=== PATIENT | male | born 1945 | race Caucasian/White ===

== ENCOUNTER 2020-04-24 20:10 | Emergency (ER) | payer OTHER, MEDICARE, SELFPAY ==
[2020-04-24] VITALS (41 sets, daily range): BP systolic 158–224; BP diastolic 74–132; PULSE 125–175; RESP 12–37; TEMP 39.3–39.4; O2SAT 88–98
--- NOTE | 2020-04-24 20:22 | DI.RAD.S_ITS ---
PROCEDURE: XR CHEST 1V INDICATIONS: acutely altered mental status TECHNIQUE: One view of the chest was acquired. COMPARISON: None. FINDINGS: Surgical changes and devices: None. Lungs and pleura: Lungs are clear. No pleural effusions or pneumothorax. Mediastinum: Mediastinal contours appear normal. Heart size is normal. Bones and chest wall: No suspicious bony lesions. Overlying soft tissues appear unremarkable. IMPRESSION: No evidence acute pulmonary process. Dictated by: Vaibhav Louise M.D. on 04/24/2020 at 21:14 Approved by: Vaibhav Louise M.D. on 04/24/2020 at 21:15
--- NOTE | 2020-04-24 20:23 | DI.CT.S_ITS ---
PROCEDURE: CT HEAD/BRAIN WO CON INDICATIONS: altered mental status TECHNIQUE: Noncontrast 4.5 mm thick angled axial sections acquired from the foramen magnum to the vertex, with coronal and sagittal reformats. For radiation dose reduction, the following was used: automated exposure control, adjustment of mA and/or kV according to patient size. COMPARISON: None. FINDINGS: Image quality: Excellent. CSF spaces: Basal cisterns are patent. No extra-axial fluid collections. The ventricles are symmetric in size and shape. Brain: No intracranial bleeds or masses. There is cerebral volume loss for age, with resultant ventricular and sulcal prominence. There are periventricular and deep white matter chronic small vessel ischemic changes. There is intracranial internal carotid artery atherosclerosis. Skull and face: Calvarium and visualized facial bones appear intact, without suspicious lesions. Sinuses: Visualized sinuses and mastoids are clear. IMPRESSION: No evidence acute stroke, hemorrhage, or mass. Dictated by: Vaibhav Louise M.D. on 04/24/2020 at 20:45 Approved by: Vaibhav Louise M.D. on 04/24/2020 at 20:45
--- NOTE | 2020-04-24 20:23 | DI.CT.S_ITS ---
PROCEDURE: CT CERVICAL SPINE WO CON INDICATIONS: ? fall, altered mental status TECHNIQUE: Noncontrast 3 mm thick sections acquired from the skull base to the T4 level. Sagittal and coronal reformats were then constructed. For radiation dose reduction, the following was used: automated exposure control, adjustment of mA and/or kV according to patient size. COMPARISON: None. FINDINGS: Image quality: Excellent. Bones: No fractures or dislocations. Visualized superior ribs are intact. Moderate cervical spondylosis. Findings include multilevel right facet arthropathy and associated multilevel bony foraminal narrowing. Soft tissues: Prevertebral soft tissues are normal in thickness. No paravertebral hematomas. No apical pneumothoraces. IMPRESSION: 1. No evidence acute cervical fracture or dislocation. 2. Cervical spondylosis. Dictated by: Vaibhav Louise M.D. on 04/24/2020 at 20:45 Approved by: Vaibhav Louise M.D. on 04/24/2020 at 20:47
[2020-04-24] MEDS: ONDANSETRON 4 MG/2 ML INJ IV (20:29)
[2020-04-24] MEDS: SODIUM CHLORIDE 0.9% 1,000 ML 1000 ML IV (20:29)
[2020-04-24 20:36] LABS: Add Manual Diff / Slide Review NO; Basophils Absolute Auto 100 /uL (0-100); Basophils Percent Auto 0.4 % (0-2); Eosinophils Absolute Auto 0 /uL (0-450); Eosinophils Percent Auto 0.2 % (2-4); Hematocrit 46.6 % (41-53); Hemoglobin 15.5 g/dL (13.5-17.5); Lymphocytes Absolute Auto 1400 /uL (1100-4500); Mean Corpuscular HGB Conc 33.3 % (30-36); Mean Corpuscular Hemoglobin 30.8 PG (26-34); Mean Corpuscular Volume 92.5 fL (80-100); Monocytes Absolute Auto 500 /uL (0-900); Monocytes Percent Auto 3.6 % (3-14); Neutrophils Absolute Auto 11900 /uL (1500-7000); Neutrophils Percent Auto 85.8 % (50-75); Platelet Count 262 X10^3/uL (150-400); Red Blood Cell Count 5.04 X10^6/uL (4.5-5.9); Red Cell Distribution Width 12.9 % (11.6-14.8); White Blood Cell Count 13.9 X10^3/uL (4.5-11.0)
[2020-04-24 20:43] LABS: COVID19 -Nasal RAPID Negative (Negative)
[2020-04-24 20:44] LABS: INR 1.1 (0.9-1.3); Prothrombin Time 12.5 SECONDS (10.1-12.7)
[2020-04-24 20:49] LABS: Albumin 5.2 g/dL (3.5-5.0); Albumin Globulin Ratio 1.3 (1.0-2.8); Alkaline Phosphatase 104 U/L (38-126); Aspartate Aminotransferase 39 IU/L (17-59); BUN Creatinine Ratio 20.5 (6-22); Bilirubin Total 0.7 mg/dL (0.2-1.3); Blood Urea Nitrogen 24 mg/dL (9-20); Calcium 9.9 mg/dL (8.4-10.2); Carbon Dioxide 21 mmol/L (22-32); Chloride 95 mmol/L (98-107); Estimated Glomerular Filt Rate > 60.0 mL/min (>60); Glucose 325 mg/dL (80-110); HEMOLYSIS 37 (0-50); Lipase 144 U/L (23-300); Magnesium 1.3 mg/dL (1.6-2.3); Potassium 4.6 mmol/L (3.4-5.1); Sodium 137 mmol/L (137-145); Total Protein 9.2 g/dL (6.3-8.2)
[2020-04-24 20:55] LABS: Alanine Aminotransferase 35 IU/L (<50)
[2020-04-24 20:58] LABS: HCO3 VBG 26 mmol/L (23-28); Oxygen Saturation VBG 53 % (70-75); PCO2 VBG 42.9 mmHg (45-50); PO2 VBG 29 mmHg (35-45); Total CO2 VBG 27 mmol/L (24-29); pH VBG 7.39 (7.33-7.43)
[2020-04-24 20:59] LABS: Lactate (Lactic Acid) 7.4 mmol/L (0.7-2.1)
[2020-04-24 21:00] LABS: NT-proBNP (BNP-Adult 18+) 323 pg/mL (<125); Troponin I < 0.012 ng/mL (0.01-0.034)
--- NOTE | 2020-04-24 21:02 | ED.GENADULT ---
HPI - General Adult General Chief complaint: Trauma Stated complaint: Fall Time Seen by Provider: 04/24/20 20:21 Source: family Mode of arrival: Family Vehicle History of Present Illness HPI narrative: 75-year-old gentleman followed at the [facility] with a history of type 2 diabetes and hypertension presents with acutely altered mental status since 10:00 a.m. this morning. His noted that he was absolutely normal until 10:00 a.m. this morning when he stumbled going over a low door threshold and fell landing on his right shoulder. did not see the actual stumbled but did witness the fall and states he did not hit his head. He continued to have increasing weakness, altered mental status. Was able to take a nap woke up and had an episode of vomiting and diarrhea. She had difficulty in getting him into the car with having him follow directions. He stumbled in the parking lot getting out of the car and scraped his right hand but did not fall again. Speech is significantly slurred and difficult to completely understand, he is not oriented to person time or place. describes again, perfectly normal health until this morning at 10:00 a.m.. She states that they both have had a mild cough, no fevers. He had not been complaining of headache, abdominal pain, difficulty with urination and she had not noticed any increase in edema or complaints of orthopnea. Related Data Home Medications Medication Instructions Recorded Confirmed aspirin 81 mg PO DAILY 04/24/20 04/24/20 atorvastatin 10 mg PO BEDTIME 04/24/20 04/24/20 ferrous sulfate 325 mg PO DAILY 04/24/20 04/24/20 glipizide 10 mg PO BID 04/24/20 04/24/20 metformin 1,000 mg PO BID 04/24/20 04/24/20 omeprazole 20 mg PO DAILY 04/24/20 04/24/20 Allergies Allergy/AdvReac Type Severity Reaction Status Date / Time No Known Drug Allergies Allergy Verified 04/24/20 22:02 Review of Systems Review of Systems ROS Unobtainable: All systems reviewed & are unremarkable except as noted in HPI and below Patient History Medical History (Updated 04/25/20 @ 02:51 by Liza Powell MD) BPH (benign prostatic hyperplasia) Diabetes Hypertension Exam Narrative Exam Narrative: General: Acutely ill-appearing, confused, pale, not oriented to person time replace, not able to respond to direct questioning due to confusion HEENT: Moist mucous membranes, normal sclera with mid position reactive pupils, no facial asymmetries. Neck: No JVD, supple Respiratory: Lungs with minor scattered wheezing but no rales no rhonchi. Full and symmetrical air movement Cardiac: Tachycardic with Regular rate and rhythm, 3/6 systolic ejection murmur, no bruits Abdomen: Soft, nontender, no pain behaviors with palpation. Mildly distended with fullness to the right portion of the abdomen which may simply be positional. No pain behaviors with manipulation of flanks Skin: Pale, decreased perfusion peripherally. He has a minor abrasion on his right shoulder minor scratches over his right knuckles both from falls today. On thorough skin exam he does not have any evidence of cellulitis or significant skin breakdown including perineal area. Neurologic: Able to move all extremities, right arm with increased upper extremity tone is and flexion but is able to extend fully without pain behavior. He is not hyper-reflexic and does not have localizing neurologic symptoms at this time. Extremities: Minor abrasion to the right shoulder. Minor contusion to the right hip and right knee, No obvious deformities or injuries otherwise Psych: Altered, garbled nonsensical speech, difficulty understanding and following directions Initial Vital Signs Initial Vital Signs: Vital Signs Pulse Rate 136 H 04/24/20 20:15 Respiratory Rate 29 H 04/24/20 20:15 Blood Pressure 207/105 H 04/24/20 20:15 Pulse Oximetry 94 04/24/20 20:15 Procedures Lumbar Puncture Time Out Performed: Yes Patient Position: left lateral decubitus Skin Prep: Povidone-Iodine 1% Local Anesthetic: other anesthetic (ketamine sedation) Spinal Needle Gauge: 22G Interspace Used: L4-L5 Fluid Initially Obtained: bloody (light pink, slightly hazy, same color all 4 tubes.) Additional Comments: CSF pressure was minimal and took extended period of time to allow the fluid collected to dribble out. Opening pressure was not specifically measured Procedural Sedation Consent signed: No Time out performed: Yes Indication: other (lumbar puncture) ASA Class: II Mallampati Airway Classification: Class II Preparation: principal scientist applied, pulse oximeter, supplemental O2 applied and IV secured Ketamine: IV Ketamine dose (mg): 80 Intraservice time/total sedation time (min): 14 Patient Tolerated Procedure: Well Course Orders Ordered: ED Orders 04/24/20 20:12 COVID19 Stat 04/24/20 20:20 Complete Blood Count AUTO DIFF Stat Comprehensive Metabolic Panel Stat Ketones (Beta-Hydroxybutyrate) Stat Lactate (Lactic Acid) Stat Lipase Stat Magnesium Stat NT-proBNP (BNP-Adult 18+) Stat Procalcitonin Stat Prothrombin Time INR Stat Troponin I Stat 04/24/20 20:22 XR chest 1V Stat 04/24/20 20:23 CT cervical spine wo con Stat CT head/brain wo con Stat 04/24/20 20:42 Venous Blood Gas Stat 04/24/20 20:45 Blood Culture Stat D Dimer Stat Type and Screen Stat 04/24/20 21:00 Urinalysis and Microscopic Stat 04/24/20 21:09 CT abdomen pelvis w con Stat 04/24/20 22:57 CSF culture Stat Cell Count w Diff CSF Stat Cell Count w Diff CSF Stat Glucose CSF Stat HOLD TUBE CSF Stat Meningitis Panel (Film Array) Stat Total Protein CSF Stat 04/25/20 01:49 CT head/brain wo con Stat 04/25/20 02:46 Respiratory Panel (Film Array) Stat Hydromorphone HCl (Hydromorphone 0.5 Mg Inj) 0.5 mg IV Q15MIN PRN PRN Reason: Pain, Last Admin: 04/24/20 21:58 Dose: 0.5 mg Documented by: TRINY Nicardipine HCl 25 mg/ Sodium (Chloride) 250 mls @ 50 mls/hr IV TITRATE ADRIEN; Protocol INSULIN DRIP PREMIX (Myxredlin Drip Premix) 100 unit in 100 mls @ 6 mls/hr IV TITRATE ADRIEN; Protocol Last Admin: 04/24/20 23:32 Dose: 6 mls/hr, 6 mls/hr Documented by: FRANCIE Cosigned by: TRINY Discontinued Medications Acetaminophen (Acetaminophen 650 Mg Supp) 650 mg AR NOW ONE Stop: 04/24/20 21:44 Last Admin: 04/24/20 21:54 Dose: 650 mg Documented by: TRINY Dexamethasone (Dexamethasone 10 Mg/Ml Vial) 10 mg IV NOW ONE Stop: 04/25/20 00:00 Last Admin: 04/25/20 00:13 Dose: 10 mg Documented by: FRANCIE Hydromorphone HCl (Hydromorphone 1 Mg Inj) 1 mg IV NOW ONE Stop: 04/25/20 01:16 Last Admin: 04/25/20 01:19 Dose: 1 mg Documented by: Sodium Chloride (Normal Saline 0.9%) 1,000 mls @ 1,000 mls/hr IV BOLUS ONE Stop: 04/24/20 21:20 Last Infusion: 04/24/20 23:33 Dose: 0 mls/hr Documented by: Admin: 04/24/20 20:29 Dose: 1,000 mls/hr Documented by: AARON Sodium Chloride (Normal Saline 0.9%) 2,476.62 mls @ 825.54 mls/hr 30 ml/kg infuse over 3 hr (2476.62 ml) IV NOW ONE Stop: 04/25/20 00:14 Last Admin: 04/24/20 21:54 Dose: 825.54 mls/hr Documented by: TRINY Piperacillin Sod/Tazobactam (Sod 4.5 gm/ Sodium Chloride) 100 mls @ 200 mls/hr IV NOW ONE Stop: 04/24/20 21:45 Last Infusion: 04/24/20 22:21 Dose: 0 mls/hr Documented by: Admin: 04/24/20 21:31 Dose: 200 mls/hr Documented by: FRANCIE Vancomycin HCl/Dextrose (Vancomycin) 1,500 mg in 300 mls @ 200 mls/hr IV NOW ONE Stop: 04/25/20 01:28 Last Titration: 04/25/20 03:05 Dose: Infused Documented by: Ceftriaxone Sodium/Dextrose (Rocephin) 2 gm in 50 mls @ 100 mls/hr IV NOW ONE Stop: 04/25/20 00:28 Last Admin: 04/25/20 00:16 Dose: 100 mls/hr Documented by: FRANCIE Ketamine HCl (Ketamine 500 Mg/5 Ml Inj) 85 mg 1 mg/kg (85 mg) IV NOW ONE Stop: 04/24/20 22:23 Last Admin: 04/24/20 22:45 Dose: 85 mg Documented by: FRANCIE Ketamine HCl (Ketamine 500 Mg/5 Ml Inj) 30 mg IV NOW ONE Stop: 04/24/20 23:50 Last Admin: 04/24/20 22:55 Dose: 30 mg Documented by: FRANCIE Ketorolac Tromethamine (Ketorolac 60 Mg/2 Ml Vial) 15 mg IV NOW ONE Stop: 04/25/20 01:15 Last Admin: 04/25/20 01:19 Dose: 15 mg Documented by: Lorazepam (Lorazepam 2 Mg/Ml Inj) 1 mg IV NOW ONE Stop: 04/24/20 23:04 Last Admin: 04/24/20 23:06 Dose: 1 mg Documented by: FRANCIE Lorazepam (Lorazepam 2 Mg/Ml Inj) 1 mg IV NOW ONE Stop: 04/24/20 23:49 Last Admin: 04/24/20 23:59 Dose: 1 mg Documented by: FRANCIE Lorazepam (Lorazepam 2 Mg/Ml Inj) 1 mg IV NOW ONE Stop: 04/25/20 00:17 Lorazepam (Lorazepam 2 Mg/Ml Inj) 1 mg IV NOW ONE Stop: 04/25/20 00:37 Olanzapine (Olanzapine Odt 10 Mg Tab) 10 mg PO NOW ONE Stop: 04/25/20 01:26 Last Admin: 04/25/20 01:35 Dose: 10 mg Documented by: Ondansetron HCl (Ondansetron 4 Mg/2 Ml Inj) 4 mg IV NOW ONE Stop: 04/24/20 20:22 Last Admin: 04/24/20 20:29 Dose: 4 mg Documented by: AARON Vital Signs Vital signs: Vital Signs - 8 hr 04/24/20 20:15 04/24/20 20:21 04/24/20 20:30 Temperature Pulse Rate 136 H 133 H 135 H Respiratory Rate 29 H 27 H 28 H Blood Pressure 207/105 H Blood Pressure [Right Arm] Pulse Oximetry 94 95 04/24/20 20:41 04/24/20 21:00 04/24/20 21:22 Temperature Pulse Rate 134 H 144 H 132 H Respiratory Rate 23 26 H 25 H Blood Pressure 210/105 H 212/103 H 223/104 H Blood Pressure [Right Arm] Pulse Oximetry 95 95 94 04/24/20 21:30 04/24/20 21:34 04/24/20 21:39 Temperature 103 F H Pulse Rate 137 H 133 H Respiratory Rate 34 H 25 H Blood Pressure 221/105 H 224/107 H Blood Pressure [Right Arm] Pulse Oximetry 93 93 04/24/20 21:58 04/24/20 22:00 04/24/20 22:05 Temperature Pulse Rate 133 H 133 H 128 H Respiratory Rate 27 H 24 22 Blood Pressure 211/95 H 219/100 H Blood Pressure [Right Arm] Pulse Oximetry 96 95 92 04/24/20 22:10 04/24/20 22:15 04/24/20 22:20 Temperature Pulse Rate 127 H 127 H 126 H Respiratory Rate 19 20 19 Blood Pressure Blood Pressure [Right Arm] Pulse Oximetry 92 92 93 04/24/20 22:25 04/24/20 22:30 04/24/20 22:31 Temperature Pulse Rate 131 H 127 H 127 H Respiratory Rate 18 21 20 Blood Pressure 171/81 H Blood Pressure [Right Arm] Pulse Oximetry 94 95 95 04/24/20 22:35 04/24/20 22:40 04/24/20 22:44 Temperature Pulse Rate 126 H 125 H 163 H Respiratory Rate 12 18 20 Blood Pressure Blood Pressure [Right Arm] Pulse Oximetry 95 97 04/24/20 22:45 04/24/20 22:46 04/24/20 22:50 Temperature Pulse Rate 133 H 140 H 149 H Respiratory Rate 21 24 27 H Blood Pressure 178/85 H 200/95 H Blood Pressure [Right Arm] 178/84 H Pulse Oximetry 91 94 88 L 04/24/20 22:55 04/24/20 22:59 04/24/20 23:00 Temperature Pulse Rate 174 H 161 H 158 H Respiratory Rate 34 H 31 H 25 H Blood Pressure 197/101 H 207/132 H Blood Pressure [Right Arm] Pulse Oximetry 89 L 97 04/24/20 23:05 04/24/20 23:06 04/24/20 23:10 Temperature Pulse Rate 175 H 172 H 160 H Respiratory Rate 36 H 37 H 37 H Blood Pressure 188/118 H Blood Pressure [Right Arm] Pulse Oximetry 91 92 94 04/24/20 23:13 04/24/20 23:15 04/24/20 23:20 Temperature Pulse Rate 150 H 134 H Respiratory Rate 25 H 21 Blood Pressure 187/82 H 174/79 H 163/74 H Blood Pressure [Right Arm] Pulse Oximetry 97 94 04/24/20 23:25 04/24/20 23:30 04/24/20 23:34 Temperature 102.7 F H Pulse Rate 129 H 128 H Respiratory Rate 25 H 23 Blood Pressure 166/77 H 158/75 H Blood Pressure [Right Arm] Pulse Oximetry 98 96 04/24/20 23:35 04/24/20 23:40 04/24/20 23:45 Temperature Pulse Rate 129 H 130 H 129 H Respiratory Rate 24 22 23 Blood Pressure 168/80 H 163/77 H 159/77 H Blood Pressure [Right Arm] Pulse Oximetry 97 98 95 04/24/20 23:50 04/24/20 23:55 04/25/20 00:00 Temperature Pulse Rate 129 H 130 H 132 H Respiratory Rate 24 26 H 22 Blood Pressure 160/82 H 158/80 H 164/81 H Blood Pressure [Right Arm] Pulse Oximetry 96 96 95 04/25/20 00:05 04/25/20 00:10 04/25/20 00:15 Temperature Pulse Rate 133 H 133 H 137 H Respiratory Rate 25 H 23 27 H Blood Pressure 166/82 H 172/82 H 165/77 H Blood Pressure [Right Arm] Pulse Oximetry 97 99 97 04/25/20 00:20 04/25/20 00:25 04/25/20 00:30 Temperature Pulse Rate 141 H 141 H 142 H Respiratory Rate 27 H 30 H 26 H Blood Pressure 173/79 H 166/76 H 176/72 H Blood Pressure [Right Arm] Pulse Oximetry 97 96 97 04/25/20 00:35 04/25/20 00:40 04/25/20 00:45 Temperature Pulse Rate 143 H 144 H 138 H Respiratory Rate 29 H 27 H 26 H Blood Pressure Blood Pressure [Right Arm] Pulse Oximetry 96 97 96 04/25/20 00:50 04/25/20 00:55 04/25/20 01:00 Temperature Pulse Rate 136 H 133 H 133 H Respiratory Rate 26 H 23 24 Blood Pressure 152/70 H Blood Pressure [Right Arm] Pulse Oximetry 95 97 97 04/25/20 01:05 04/25/20 01:10 04/25/20 01:15 Temperature Pulse Rate 132 H 132 H 131 H Respiratory Rate 23 25 H 22 Blood Pressure Blood Pressure [Right Arm] Pulse Oximetry 96 96 94 04/25/20 01:20 04/25/20 01:25 04/25/20 01:30 Temperature Pulse Rate 130 H 126 H 125 H Respiratory Rate 23 21 19 Blood Pressure 144/72 H Blood Pressure [Right Arm] Pulse Oximetry 96 94 97 04/25/20 01:35 04/25/20 01:40 04/25/20 01:45 Temperature Pulse Rate 126 H 125 H 127 H Respiratory Rate 21 18 19 Blood Pressure Blood Pressure [Right Arm] Pulse Oximetry 89 L 96 94 04/25/20 01:50 04/25/20 01:55 04/25/20 02:00 Temperature Pulse Rate 128 H 128 H 129 H Respiratory Rate 20 21 19 Blood Pressure Blood Pressure [Right Arm] Pulse Oximetry 92 94 94 04/25/20 02:05 04/25/20 02:10 04/25/20 02:12 Temperature Pulse Rate 126 H 125 H 125 H Respiratory Rate 18 19 18 Blood Pressure 109/59 L Blood Pressure [Right Arm] Pulse Oximetry 93 95 97 04/25/20 02:15 04/25/20 02:20 04/25/20 02:25 Temperature Pulse Rate 124 H 122 H 121 H Respiratory Rate 17 16 16 Blood Pressure Blood Pressure [Right Arm] Pulse Oximetry 95 94 93 04/25/20 02:30 04/25/20 02:31 04/25/20 02:35 Temperature Pulse Rate 120 H 119 H 118 H Respiratory Rate 15 16 16 Blood Pressure 88/51 L 101/54 L Blood Pressure [Right Arm] Pulse Oximetry 94 94 93 04/25/20 02:40 04/25/20 02:45 04/25/20 02:46 Temperature Pulse Rate 117 H 117 H 117 H Respiratory Rate 16 16 15 Blood Pressure 104/54 L Blood Pressure [Right Arm] Pulse Oximetry 93 93 93 04/25/20 02:50 04/25/20 02:55 04/25/20 03:00 Temperature Pulse Rate 120 H 118 H 119 H Respiratory Rate 18 16 15 Blood Pressure 114/60 Blood Pressure [Right Arm] Pulse Oximetry 94 95 94 04/25/20 03:05 04/25/20 03:10 04/25/20 03:15 Temperature Pulse Rate 119 H 120 H 120 H Respiratory Rate 15 16 14 Blood Pressure 113/58 L Blood Pressure [Right Arm] Pulse Oximetry 94 94 94 04/25/20 03:20 Temperature Pulse Rate 121 H Respiratory Rate 16 Blood Pressure Blood Pressure [Right Arm] Pulse Oximetry 94 Medical Decision Making Medical Records Medical records reviewed: Yes I reviewed the patient's medical records. Lab Data Lab results reviewed: Yes I reviewed the patient's lab results. Lab results narrative: Anion gap 21 D-dimer corrects for age 23:00 CSF has 4250 WBC, 13 red blood cells glucose is 147 with serum glucose at 290, CSF total protein is 93. No organisms with occasional white blood cell seen on Gram stain, 02:00 Lab error in reporting CSF results is identified and clarified. Tube #1: 13 WBC, 4900 RBC. Tube #2: 13 WBC, 4250 RBC. Result diagrams: 04/24/20 20:20 04/24/20 20:20 Labs: Lab Results 04/24/20 04/24/20 04/24/20 Range/Units 20:12 20:20 20:20 WBC 13.9 H (4.5-11.0) X10^3/uL RBC 5.04 (4.5-5.9) X10^6/uL Hgb 15.5 (13.5-17.5) g/dL Hct 46.6 (41-53) % MCV 92.5 (80-100) fL MCH 30.8 (26-34) PG MCHC 33.3 (30-36) % RDW 12.9 (11.6-14.8) % Plt Count 262 (150-400) X10^3/uL Neut % (Auto) 85.8 H (50-75) % Lymph % (Auto) 10.0 L (25-40) % [place] % (Auto) 3.6 (3-14) % Eos % (Auto) 0.2 L (2-4) % Baso % (Auto) 0.4 (0-2) % Neut # (Auto) 06219 H (0010-7470) /uL Lymph # (Auto) 1400 (7750-0736) /uL [place] # (Auto) 500 (0-900) /uL Eos # (Auto) 0 (0-450) /uL Baso # (Auto) 100 (0-100) /uL PT 12.5 (10.1-12.7) SECONDS INR 1.1 (0.9-1.3) D-Dimer (<230) ng/mL VBG pH (7.33-7.43) VBG pCO2 (45-50) mmHg VBG pO2 (35-45) mmHg VBG HCO3 (23-28) mmol/L VBG Total CO2 (24-29) mmol/L VBG O2 Saturation (70-75) % VBG Base Excess (0-4) mmol/L Sodium (137-145) mmol/L Potassium (3.4-5.1) mmol/L Chloride (98-107) mmol/L Carbon Dioxide (22-32) mmol/L BUN (9-20) mg/dL Creatinine (0.66-1.25) mg/dL Estimated GFR (>60) mL/min BUN/Creatinine Ratio (6-22) Glucose (80-110) mg/dL Lactate (0.7-2.1) mmol/L Calcium (8.4-10.2) mg/dL Magnesium (1.6-2.3) mg/dL Total Bilirubin (0.2-1.3) mg/dL AST (17-59) IU/L ALT (<50) IU/L Alkaline Phosphatase (38-126) U/L Troponin I (0.01-0.034) ng/mL NT-Pro-B Natriuret Pep (<125) pg/mL Total Protein (6.3-8.2) g/dL Albumin (3.5-5.0) g/dL Globulin (1.7-4.1) g/dL Albumin/Globulin Ratio (1.0-2.8) Lipase (23-300) U/L Procalcitonin (<0.5) ng/mL Urine Color Urine Appearance Urine pH (4.5-8.0) Ur Specific [place] (1.000-1.035) Urine Protein (Negative) Urine Glucose (UA) (Negative) g/dL Urine Ketones (NEGATIVE) Urine Occult Blood (Negative) Urine Nitrate (Negative) Urine Bilirubin (NEGATIVE) Urine Urobilinogen (0.2) E.U./dL Ur Leukocyte Esterase (NEGATIVE) Urine RBC (0-5/HPF) Urine WBC (0-5/HPF) Urine Bacteria (None) Hyaline Casts (None) Ur Culture Indicated? CSF Tube Number CSF Volume CSF Appearance (Clear) CSF Color (Colorless) CSF WBC (0-5) MONO/uL CSF RBC RBC /uL CSF Mononuclear WBCs % CSF Polynuclear WBCs % CSF Glucose (40-70) mg/dL CSF Total Protein (12-60) mg/dL CSF C.neoform/gat PCR (Not Detect) CSF CMV DNA (PCR) (Not Detect) CSF Enterovirus (PCR) (Not Detect) CSF E. coli (PCR) (Not Detect) CSF H. influenzae (PCR) (Not Detect) CSF HSV I (PCR) (Not Detect) CSF HSV II (PCR) (Not Detect) CSF HHV 6 (PCR) (Not Detect) CSF L.monocytogenes PCR (Not Detect) CSF N. meningitidis PCR (Not Detect) CSF Parechovirus (PCR) (Not Detect) CSF S. agalactiae (PCR) (Not Detect) CSF S. pneumoniae (PCR) (Not Detect) CSF VZV (PCR) (Not Detecte) Ketones (<0.27) mmol/L Chlamy pneumoniae PCR (Not Detect) Adenovirus (PCR) (Not Detect) B.parapertussis DNA PCR (Not Detect) Coronavirus OC43 (PCR) (Not Detect) Coronavirus HKU1 (PCR) (Not Detect) Coronavirus 229E (PCR) (Not Detect) SARS-CoV-2 (PCR) Negative (Negative) Coronavirus NL63 (PCR) (Not Detect) Human Metapneumovir PCR (Not Detect) Influenza Type A (PCR) (Not Detect) Influenza Type B (PCR) (Not Detect) M. pneumoniae (PCR) (Not Detect) Parainfluenza 1 (PCR) (Not Detect) Parainfluenza 2 (PCR) (Not Detect) Parainfluenza 3 (PCR) (Not Detect) Parainfluenza 4 (PCR) (Not Detect) RSV (PCR) (Not Detect) Entero/Rhino (PCR) (Not Detect) Blood Type Antibody Screen 04/24/20 04/24/20 04/24/20 Range/Units 20:20 20:20 20:20 WBC (4.5-11.0) X10^3/uL RBC (4.5-5.9) X10^6/uL Hgb (13.5-17.5) g/dL Hct (41-53) % MCV (80-100) fL MCH (26-34) PG MCHC (30-36) % RDW (11.6-14.8) % Plt Count (150-400) X10^3/uL Neut % (Auto) (50-75) % Lymph % (Auto) (25-40) % [place] % (Auto) (3-14) % Eos % (Auto) (2-4) % Baso % (Auto) (0-2) % Neut # (Auto) (4694-9331) /uL Lymph # (Auto) (4519-2144) /uL [place] # (Auto) (0-900) /uL Eos # (Auto) (0-450) /uL Baso # (Auto) (0-100) /uL PT (10.1-12.7) SECONDS INR (0.9-1.3) D-Dimer (<230) ng/mL VBG pH (7.33-7.43) VBG pCO2 (45-50) mmHg VBG pO2 (35-45) mmHg VBG HCO3 (23-28) mmol/L VBG Total CO2 (24-29) mmol/L VBG O2 Saturation (70-75) % VBG Base Excess (0-4) mmol/L Sodium 137 (137-145) mmol/L Potassium 4.6 (3.4-5.1) mmol/L Chloride 95 L (98-107) mmol/L Carbon Dioxide 21 L (22-32) mmol/L BUN 24 H (9-20) mg/dL Creatinine 1.17 (0.66-1.25) mg/dL Estimated GFR > 60.0 (>60) mL/min BUN/Creatinine Ratio 20.5 (6-22) Glucose 325 H (80-110) mg/dL Lactate 7.4 H* (0.7-2.1) mmol/L Calcium 9.9 (8.4-10.2) mg/dL Magnesium 1.3 L (1.6-2.3) mg/dL Total Bilirubin 0.7 (0.2-1.3) mg/dL AST 39 (17-59) IU/L ALT 35 (<50) IU/L Alkaline Phosphatase 104 (38-126) U/L Troponin I < 0.012 (0.01-0.034) ng/mL NT-Pro-B Natriuret Pep 323 H (<125) pg/mL Total Protein 9.2 H (6.3-8.2) g/dL Albumin 5.2 H (3.5-5.0) g/dL Globulin 4.0 (1.7-4.1) g/dL Albumin/Globulin Ratio 1.3 (1.0-2.8) Lipase 144 (23-300) U/L Procalcitonin < 0.05 (<0.5) ng/mL Urine Color Urine Appearance Urine pH (4.5-8.0) Ur Specific [place] (1.000-1.035) Urine Protein (Negative) Urine Glucose (UA) (Negative) g/dL Urine Ketones (NEGATIVE) Urine Occult Blood (Negative) Urine Nitrate (Negative) Urine Bilirubin (NEGATIVE) Urine Urobilinogen (0.2) E.U./dL Ur Leukocyte Esterase (NEGATIVE) Urine RBC (0-5/HPF) Urine WBC (0-5/HPF) Urine Bacteria (None) Hyaline Casts (None) Ur Culture Indicated? CSF Tube Number CSF Volume CSF Appearance (Clear) CSF Color (Colorless) CSF WBC (0-5) MONO/uL CSF RBC RBC /uL CSF Mononuclear WBCs % CSF Polynuclear WBCs % CSF Glucose (40-70) mg/dL CSF Total Protein (12-60) mg/dL CSF C.neoform/gat PCR (Not Detect) CSF CMV DNA (PCR) (Not Detect) CSF Enterovirus (PCR) (Not Detect) CSF E. coli (PCR) (Not Detect) CSF H. influenzae (PCR) (Not Detect) CSF HSV I (PCR) (Not Detect) CSF HSV II (PCR) (Not Detect) CSF HHV 6 (PCR) (Not Detect) CSF L.monocytogenes PCR (Not Detect) CSF N. meningitidis PCR (Not Detect) CSF Parechovirus (PCR) (Not Detect) CSF S. agalactiae (PCR) (Not Detect) CSF S. pneumoniae (PCR) (Not Detect) CSF VZV (PCR) (Not Detecte) Ketones (<0.27) mmol/L Chlamy pneumoniae PCR (Not Detect) Adenovirus (PCR) (Not Detect) B.parapertussis DNA PCR (Not Detect) Coronavirus OC43 (PCR) (Not Detect) Coronavirus HKU1 (PCR) (Not Detect) Coronavirus 229E (PCR) (Not Detect) SARS-CoV-2 (PCR) (Negative) Coronavirus NL63 (PCR) (Not Detect) Human Metapneumovir PCR (Not Detect) Influenza Type A (PCR) (Not Detect) Influenza Type B (PCR) (Not Detect) M. pneumoniae (PCR) (Not Detect) Parainfluenza 1 (PCR) (Not Detect) Parainfluenza 2 (PCR) (Not Detect) Parainfluenza 3 (PCR) (Not Detect) Parainfluenza 4 (PCR) (Not Detect) RSV (PCR) (Not Detect) Entero/Rhino (PCR) (Not Detect) Blood Type Antibody Screen 04/24/20 04/24/20 04/24/20 Range/Units 20:20 20:42 20:45 WBC (4.5-11.0) X10^3/uL RBC (4.5-5.9) X10^6/uL Hgb (13.5-17.5) g/dL Hct (41-53) % MCV (80-100) fL MCH (26-34) PG MCHC (30-36) % RDW (11.6-14.8) % Plt Count (150-400) X10^3/uL Neut % (Auto) (50-75) % Lymph % (Auto) (25-40) % [place] % (Auto) (3-14) % Eos % (Auto) (2-4) % Baso % (Auto) (0-2) % Neut # (Auto) (0561-4462) /uL Lymph # (Auto) (5304-1670) /uL [place] # (Auto) (0-900) /uL Eos # (Auto) (0-450) /uL Baso # (Auto) (0-100) /uL PT (10.1-12.7) SECONDS INR (0.9-1.3) D-Dimer (<230) ng/mL VBG pH 7.39 (7.33-7.43) VBG pCO2 42.9 L (45-50) mmHg VBG pO2 29 L (35-45) mmHg VBG HCO3 26 (23-28) mmol/L VBG Total CO2 27 (24-29) mmol/L VBG O2 Saturation 53 L (70-75) % VBG Base Excess 1.0 (0-4) mmol/L Sodium (137-145) mmol/L Potassium (3.4-5.1) mmol/L Chloride (98-107) mmol/L Carbon Dioxide (22-32) mmol/L BUN (9-20) mg/dL Creatinine (0.66-1.25) mg/dL Estimated GFR (>60) mL/min BUN/Creatinine Ratio (6-22) Glucose (80-110) mg/dL Lactate (0.7-2.1) mmol/L Calcium (8.4-10.2) mg/dL Magnesium (1.6-2.3) mg/dL Total Bilirubin (0.2-1.3) mg/dL AST (17-59) IU/L ALT (<50) IU/L Alkaline Phosphatase (38-126) U/L Troponin I (0.01-0.034) ng/mL NT-Pro-B Natriuret Pep (<125) pg/mL Total Protein (6.3-8.2) g/dL Albumin (3.5-5.0) g/dL Globulin (1.7-4.1) g/dL Albumin/Globulin Ratio (1.0-2.8) Lipase (23-300) U/L Procalcitonin (<0.5) ng/mL Urine Color Urine Appearance Urine pH (4.5-8.0) Ur Specific [place] (1.000-1.035) Urine Protein (Negative) Urine Glucose (UA) (Negative) g/dL Urine Ketones (NEGATIVE) Urine Occult Blood (Negative) Urine Nitrate (Negative) Urine Bilirubin (NEGATIVE) Urine Urobilinogen (0.2) E.U./dL Ur Leukocyte Esterase (NEGATIVE) Urine RBC (0-5/HPF) Urine WBC (0-5/HPF) Urine Bacteria (None) Hyaline Casts (None) Ur Culture Indicated? CSF Tube Number CSF Volume CSF Appearance (Clear) CSF Color (Colorless) CSF WBC (0-5) MONO/uL CSF RBC RBC /uL CSF Mononuclear WBCs % CSF Polynuclear WBCs % CSF Glucose (40-70) mg/dL CSF Total Protein (12-60) mg/dL CSF C.neoform/gat PCR (Not Detect) CSF CMV DNA (PCR) (Not Detect) CSF Enterovirus (PCR) (Not Detect) CSF E. coli (PCR) (Not Detect) CSF H. influenzae (PCR) (Not Detect) CSF HSV I (PCR) (Not Detect) CSF HSV II (PCR) (Not Detect) CSF HHV 6 (PCR) (Not Detect) CSF L.monocytogenes PCR (Not Detect) CSF N. meningitidis PCR (Not Detect) CSF Parechovirus (PCR) (Not Detect) CSF S. agalactiae (PCR) (Not Detect) CSF S. pneumoniae (PCR) (Not Detect) CSF VZV (PCR) (Not Detecte) Ketones 0.71 H (<0.27) mmol/L Chlamy pneumoniae PCR (Not Detect) Adenovirus (PCR) (Not Detect) B.parapertussis DNA PCR (Not Detect) Coronavirus OC43 (PCR) (Not Detect) Coronavirus HKU1 (PCR) (Not Detect) Coronavirus 229E (PCR) (Not Detect) SARS-CoV-2 (PCR) (Negative) Coronavirus NL63 (PCR) (Not Detect) Human Metapneumovir PCR (Not Detect) Influenza Type A (PCR) (Not Detect) Influenza Type B (PCR) (Not Detect) M. pneumoniae (PCR) (Not Detect) Parainfluenza 1 (PCR) (Not Detect) Parainfluenza 2 (PCR) (Not Detect) Parainfluenza 3 (PCR) (Not Detect) Parainfluenza 4 (PCR) (Not Detect) RSV (PCR) (Not Detect) Entero/Rhino (PCR) (Not Detect) Blood Type O Positive Antibody Screen Negative 04/24/20 04/24/20 04/24/20 Range/Units 20:45 21:00 22:38 WBC (4.5-11.0) X10^3/uL RBC (4.5-5.9) X10^6/uL Hgb (13.5-17.5) g/dL Hct (41-53) % MCV (80-100) fL MCH (26-34) PG MCHC (30-36) % RDW (11.6-14.8) % Plt Count (150-400) X10^3/uL Neut % (Auto) (50-75) % Lymph % (Auto) (25-40) % [place] % (Auto) (3-14) % Eos % (Auto) (2-4) % Baso % (Auto) (0-2) % Neut # (Auto) (6454-3343) /uL Lymph # (Auto) (8058-9037) /uL [place] # (Auto) (0-900) /uL Eos # (Auto) (0-450) /uL Baso # (Auto) (0-100) /uL PT (10.1-12.7) SECONDS INR (0.9-1.3) D-Dimer 295 H (<230) ng/mL VBG pH (7.33-7.43) VBG pCO2 (45-50) mmHg VBG pO2 (35-45) mmHg VBG HCO3 (23-28) mmol/L VBG Total CO2 (24-29) mmol/L VBG O2 Saturation (70-75) % VBG Base Excess (0-4) mmol/L Sodium (137-145) mmol/L Potassium (3.4-5.1) mmol/L Chloride (98-107) mmol/L Carbon Dioxide (22-32) mmol/L BUN (9-20) mg/dL Creatinine (0.66-1.25) mg/dL Estimated GFR (>60) mL/min BUN/Creatinine Ratio (6-22) Glucose (80-110) mg/dL Lactate 3.1 H (0.7-2.1) mmol/L Calcium (8.4-10.2) mg/dL Magnesium (1.6-2.3) mg/dL Total Bilirubin (0.2-1.3) mg/dL AST (17-59) IU/L ALT (<50) IU/L Alkaline Phosphatase (38-126) U/L Troponin I (0.01-0.034) ng/mL NT-Pro-B Natriuret Pep (<125) pg/mL Total Protein (6.3-8.2) g/dL Albumin (3.5-5.0) g/dL Globulin (1.7-4.1) g/dL Albumin/Globulin Ratio (1.0-2.8) Lipase (23-300) U/L Procalcitonin (<0.5) ng/mL Urine Color Yellow Urine Appearance Clear Urine pH 7.0 (4.5-8.0) Ur Specific [place] 1.020 (1.000-1.035) Urine Protein 3+ H (Negative) Urine Glucose (UA) 2+ H (Negative) g/dL Urine Ketones 1+ H (NEGATIVE) Urine Occult Blood 1+ H (Negative) Urine Nitrate Negative (Negative) Urine Bilirubin Negative (NEGATIVE) Urine Urobilinogen 0.2 (0.2) E.U./dL Ur Leukocyte Esterase Negative (NEGATIVE) Urine RBC 1-5/hpf (0-5/HPF) Urine WBC 0-1/hpf (0-5/HPF) Urine Bacteria None seen (None) Hyaline Casts 0-1/lpf (None) Ur Culture Indicated? Cult not indicated CSF Tube Number CSF Volume CSF Appearance (Clear) CSF Color (Colorless) CSF WBC (0-5) MONO/uL CSF RBC RBC /uL CSF Mononuclear WBCs % CSF Polynuclear WBCs % CSF Glucose (40-70) mg/dL CSF Total Protein (12-60) mg/dL CSF C.neoform/gat PCR (Not Detect) CSF CMV DNA (PCR) (Not Detect) CSF Enterovirus (PCR) (Not Detect) CSF E. coli (PCR) (Not Detect) CSF H. influenzae (PCR) (Not Detect) CSF HSV I (PCR) (Not Detect) CSF HSV II (PCR) (Not Detect) CSF HHV 6 (PCR) (Not Detect) CSF L.monocytogenes PCR (Not Detect) CSF N. meningitidis PCR (Not Detect) CSF Parechovirus (PCR) (Not Detect) CSF S. agalactiae (PCR) (Not Detect) CSF S. pneumoniae (PCR) (Not Detect) CSF VZV (PCR) (Not Detecte) Ketones (<0.27) mmol/L Chlamy pneumoniae PCR (Not Detect) Adenovirus (PCR) (Not Detect) B.parapertussis DNA PCR (Not Detect) Coronavirus OC43 (PCR) (Not Detect) Coronavirus HKU1 (PCR) (Not Detect) Coronavirus 229E (PCR) (Not Detect) SARS-CoV-2 (PCR) (Negative) Coronavirus NL63 (PCR) (Not Detect) Human Metapneumovir PCR (Not Detect) Influenza Type A (PCR) (Not Detect) Influenza Type B (PCR) (Not Detect) M. pneumoniae (PCR) (Not Detect) Parainfluenza 1 (PCR) (Not Detect) Parainfluenza 2 (PCR) (Not Detect) Parainfluenza 3 (PCR) (Not Detect) Parainfluenza 4 (PCR) (Not Detect) RSV (PCR) (Not Detect) Entero/Rhino (PCR) (Not Detect) Blood Type Antibody Screen 04/24/20 04/24/20 04/24/20 Range/Units 22:57 22:57 22:57 WBC (4.5-11.0) X10^3/uL RBC (4.5-5.9) X10^6/uL Hgb (13.5-17.5) g/dL Hct (41-53) % MCV (80-100) fL MCH (26-34) PG MCHC (30-36) % RDW (11.6-14.8) % Plt Count (150-400) X10^3/uL Neut % (Auto) (50-75) % Lymph % (Auto) (25-40) % [place] % (Auto) (3-14) % Eos % (Auto) (2-4) % Baso % (Auto) (0-2) % Neut # (Auto) (3082-4604) /uL Lymph # (Auto) (7833-5302) /uL [place] # (Auto) (0-900) /uL Eos # (Auto) (0-450) /uL Baso # (Auto) (0-100) /uL PT (10.1-12.7) SECONDS INR (0.9-1.3) D-Dimer (<230) ng/mL VBG pH (7.33-7.43) VBG pCO2 (45-50) mmHg VBG pO2 (35-45) mmHg VBG HCO3 (23-28) mmol/L VBG Total CO2 (24-29) mmol/L VBG O2 Saturation (70-75) % VBG Base Excess (0-4) mmol/L Sodium (137-145) mmol/L Potassium (3.4-5.1) mmol/L Chloride (98-107) mmol/L Carbon Dioxide (22-32) mmol/L BUN (9-20) mg/dL Creatinine (0.66-1.25) mg/dL Estimated GFR (>60) mL/min BUN/Creatinine Ratio (6-22) Glucose (80-110) mg/dL Lactate (0.7-2.1) mmol/L Calcium (8.4-10.2) mg/dL Magnesium (1.6-2.3) mg/dL Total Bilirubin (0.2-1.3) mg/dL AST (17-59) IU/L ALT (<50) IU/L Alkaline Phosphatase (38-126) U/L Troponin I (0.01-0.034) ng/mL NT-Pro-B Natriuret Pep (<125) pg/mL Total Protein (6.3-8.2) g/dL Albumin (3.5-5.0) g/dL Globulin (1.7-4.1) g/dL Albumin/Globulin Ratio (1.0-2.8) Lipase (23-300) U/L Procalcitonin (<0.5) ng/mL Urine Color Urine Appearance Urine pH (4.5-8.0) Ur Specific [place] (1.000-1.035) Urine Protein (Negative) Urine Glucose (UA) (Negative) g/dL Urine Ketones (NEGATIVE) Urine Occult Blood (Negative) Urine Nitrate (Negative) Urine Bilirubin (NEGATIVE) Urine Urobilinogen (0.2) E.U./dL Ur Leukocyte Esterase (NEGATIVE) Urine RBC (0-5/HPF) Urine WBC (0-5/HPF) Urine Bacteria (None) Hyaline Casts (None) Ur Culture Indicated? CSF Tube Number 1 CSF Volume 1.0 ml CSF Appearance Cloudy H (Clear) CSF Color [place] H (Colorless) CSF WBC 13 H (0-5) MONO/uL CSF RBC 4900 RBC /uL CSF Mononuclear WBCs 14 % CSF Polynuclear WBCs 86 % CSF Glucose 147 H (40-70) mg/dL CSF Total Protein 93 H (12-60) mg/dL CSF C.neoform/gat PCR Not detected (Not Detect) CSF CMV DNA (PCR) Not detected (Not Detect) CSF Enterovirus (PCR) Not detected (Not Detect) CSF E. coli (PCR) Not detected (Not Detect) CSF H. influenzae (PCR) Not detected (Not Detect) CSF HSV I (PCR) Not detected (Not Detect) CSF HSV II (PCR) Not detected (Not Detect) CSF HHV 6 (PCR) Not detected (Not Detect) CSF L.monocytogenes PCR Not detected (Not Detect) CSF N. meningitidis PCR Not detected (Not Detect) CSF Parechovirus (PCR) Not detected (Not Detect) CSF S. agalactiae (PCR) Not detected (Not Detect) CSF S. pneumoniae (PCR) Not detected (Not Detect) CSF VZV (PCR) Not detected (Not Detecte) Ketones (<0.27) mmol/L Chlamy pneumoniae PCR (Not Detect) Adenovirus (PCR) (Not Detect) B.parapertussis DNA PCR (Not Detect) Coronavirus OC43 (PCR) (Not Detect) Coronavirus HKU1 (PCR) (Not Detect) Coronavirus 229E (PCR) (Not Detect) SARS-CoV-2 (PCR) (Negative) Coronavirus NL63 (PCR) (Not Detect) Human Metapneumovir PCR (Not Detect) Influenza Type A (PCR) (Not Detect) Influenza Type B (PCR) (Not Detect) M. pneumoniae (PCR) (Not Detect) Parainfluenza 1 (PCR) (Not Detect) Parainfluenza 2 (PCR) (Not Detect) Parainfluenza 3 (PCR) (Not Detect) Parainfluenza 4 (PCR) (Not Detect) RSV (PCR) (Not Detect) Entero/Rhino (PCR) (Not Detect) Blood Type Antibody Screen 04/24/20 04/25/20 Range/Units 22:57 02:50 WBC (4.5-11.0) X10^3/uL RBC (4.5-5.9) X10^6/uL Hgb (13.5-17.5) g/dL Hct (41-53) % MCV (80-100) fL MCH (26-34) PG MCHC (30-36) % RDW (11.6-14.8) % Plt Count (150-400) X10^3/uL Neut % (Auto) (50-75) % Lymph % (Auto) (25-40) % [place] % (Auto) (3-14) % Eos % (Auto) (2-4) % Baso % (Auto) (0-2) % Neut # (Auto) (6080-6091) /uL Lymph # (Auto) (5142-6022) /uL [place] # (Auto) (0-900) /uL Eos # (Auto) (0-450) /uL Baso # (Auto) (0-100) /uL PT (10.1-12.7) SECONDS INR (0.9-1.3) D-Dimer (<230) ng/mL VBG pH (7.33-7.43) VBG pCO2 (45-50) mmHg VBG pO2 (35-45) mmHg VBG HCO3 (23-28) mmol/L VBG Total CO2 (24-29) mmol/L VBG O2 Saturation (70-75) % VBG Base Excess (0-4) mmol/L Sodium (137-145) mmol/L Potassium (3.4-5.1) mmol/L Chloride (98-107) mmol/L Carbon Dioxide (22-32) mmol/L BUN (9-20) mg/dL Creatinine (0.66-1.25) mg/dL Estimated GFR (>60) mL/min BUN/Creatinine Ratio (6-22) Glucose (80-110) mg/dL Lactate (0.7-2.1) mmol/L Calcium (8.4-10.2) mg/dL Magnesium (1.6-2.3) mg/dL Total Bilirubin (0.2-1.3) mg/dL AST (17-59) IU/L ALT (<50) IU/L Alkaline Phosphatase (38-126) U/L Troponin I (0.01-0.034) ng/mL NT-Pro-B Natriuret Pep (<125) pg/mL Total Protein (6.3-8.2) g/dL Albumin (3.5-5.0) g/dL Globulin (1.7-4.1) g/dL Albumin/Globulin Ratio (1.0-2.8) Lipase (23-300) U/L Procalcitonin (<0.5) ng/mL Urine Color Urine Appearance Urine pH (4.5-8.0) Ur Specific [place] (1.000-1.035) Urine Protein (Negative) Urine Glucose (UA) (Negative) g/dL Urine Ketones (NEGATIVE) Urine Occult Blood (Negative) Urine Nitrate (Negative) Urine Bilirubin (NEGATIVE) Urine Urobilinogen (0.2) E.U./dL Ur Leukocyte Esterase (NEGATIVE) Urine RBC (0-5/HPF) Urine WBC (0-5/HPF) Urine Bacteria (None) Hyaline Casts (None) Ur Culture Indicated? CSF Tube Number 4 CSF Volume 1.0 ml CSF Appearance Slightly cloudy H (Clear) CSF Color [place] H (Colorless) CSF WBC 13 H (0-5) MONO/uL CSF RBC 4250 RBC /uL CSF Mononuclear WBCs 18 % CSF Polynuclear WBCs 82 % CSF Glucose (40-70) mg/dL CSF Total Protein (12-60) mg/dL CSF C.neoform/gat PCR (Not Detect) CSF CMV DNA (PCR) (Not Detect) CSF Enterovirus (PCR) (Not Detect) CSF E. coli (PCR) (Not Detect) CSF H. influenzae (PCR) (Not Detect) CSF HSV I (PCR) (Not Detect) CSF HSV II (PCR) (Not Detect) CSF HHV 6 (PCR) (Not Detect) CSF L.monocytogenes PCR (Not Detect) CSF N. meningitidis PCR (Not Detect) CSF Parechovirus (PCR) (Not Detect) CSF S. agalactiae (PCR) (Not Detect) CSF S. pneumoniae (PCR) (Not Detect) CSF VZV (PCR) (Not Detecte) Ketones (<0.27) mmol/L Chlamy pneumoniae PCR Not detected (Not Detect) Adenovirus (PCR) Not detected (Not Detect) B.parapertussis DNA PCR Not detected (Not Detect) Coronavirus OC43 (PCR) Not detected (Not Detect) Coronavirus HKU1 (PCR) Not detected (Not Detect) Coronavirus 229E (PCR) Not detected (Not Detect) SARS-CoV-2 (PCR) Not detected (Negative) Coronavirus NL63 (PCR) Not detected (Not Detect) Human Metapneumovir PCR Not detected (Not Detect) Influenza Type A (PCR) Not detected (Not Detect) Influenza Type B (PCR) Not detected (Not Detect) M. pneumoniae (PCR) Not detected (Not Detect) Parainfluenza 1 (PCR) Not detected (Not Detect) Parainfluenza 2 (PCR) Not detected (Not Detect) Parainfluenza 3 (PCR) Not detected (Not Detect) Parainfluenza 4 (PCR) Not detected (Not Detect) RSV (PCR) Not detected (Not Detect) Entero/Rhino (PCR) Not detected (Not Detect) Blood Type Antibody Screen Point of Care Testing Glucose POC 157 Point of care testing: Point of Care Testing Glucose POC 157 Imaging Data Chest x-ray: Radiologist's Impression: FINDINGS: Surgical changes and devices: None. Lungs and pleura: Lungs are clear. No pleural effusions or pneumothorax. Mediastinum: Mediastinal contours appear normal. Heart size is normal. Bones and chest wall: No suspicious bony lesions. Overlying soft tissues appear unremarkable. IMPRESSION: No evidence acute pulmonary process. Dictated by: Vaibhav Louise M.D. on 04/24/2020 at 21:14 CT scan - head: Radiologist's Impression: FINDINGS: Image quality: Excellent. CSF spaces: Basal cisterns are patent. No extra-axial fluid collections. The ventricles are symmetric in size and shape. Brain: No intracranial bleeds or masses. There is cerebral volume loss for age, with resultant ventricular and sulcal prominence. There are periventricular and deep white matter chronic small vessel ischemic changes. There is intracranial internal carotid artery atherosclerosis. Skull and face: Calvarium and visualized facial bones appear intact, without suspicious lesions. Sinuses: Visualized sinuses and mastoids are clear. IMPRESSION: No evidence acute stroke, hemorrhage, or mass. Dictated by: Vaibhav Louise M.D. on 04/24/2020 at 20:45 REPEAT SCAN HEAD WO contrast No intracranial hemorrhage or mass effect. Close follow-up recommended if symptoms persist. Of note, night read service reports no comparison film provided. 02:[address] department, will ask her to make sure that both scans are reports due to the night reading radiologist so that both can actually be compared directly. Waiting for confirmatory 2nd rate. Impression: no significant changed compared to 04/24/20 Kal Millan MD 03:25 CT - cervical spine: Radiologist's Impression: FINDINGS: Image quality: Excellent. Bones: No fractures or dislocations. Visualized superior ribs are intact. Moderate cervical spondylosis. Findings include multilevel right facet arthropathy and associated multilevel bony foraminal narrowing. Soft tissues: Prevertebral soft tissues are normal in thickness. No paravertebral hematomas. No apical pneumothoraces. IMPRESSION: 1. No evidence acute cervical fracture or dislocation. 2. Cervical spondylosis. Dictated by: Vaibhav Louise M.D. on 04/24/2020 at 20:45 CT scan - abdomen/pelvis: Radiologist's Impression: FINDINGS: Image quality: Excellent. ABDOMEN: Lung bases: 3 cm mass, right lower lobe. It has some central low density. Heart size is normal. Solid organs: There is a 1 cm hypodensity in the posterior segment of the right lobe of the liver, likely representing a cyst versus hemangioma. No suspicious solid liver masses are identified. Liver is normal in size and enhancement. There are probably small noncalcified gallstones in the gallbladder. There is no gallbladder wall thickening. Biliary system is non dilated. Pancreas enhances normally. Spleen is normal in size and enhancement. No adrenal nodules. Kidneys demonstrate normal size and enhancement, without hydronephrosis. Peritoneum and bowel: Bowel loops demonstrate normal wall thickness and caliber. No free fluid or air. Nodes and vessels: No retroperitoneal or mesenteric adenopathy by size criteria. Aorta and inferior vena cava are normal in size. [place] lymph node anterior to the inferior vena cava on image 35/2, not suspicious by size criteria. Miscellaneous: No ventral hernias. PELVIS: Genitourinary: A Wilson catheter is present in the bladder. There is diffuse bladder wall thickening. The prostate is enlarged. Miscellaneous: Right inguinal hernia containing fat. No inguinal adenopathy. Bones: No suspicious bony lesions. No vertebral body compression fractures. IMPRESSION: 1. 3 cm mass, suspicious for malignancy, right lower lobe. 2. Probable hemangioma versus small cyst in the liver. 3. Prostate enlargement, indwelling Wilson, bladder wall thickening. 4. Right inguinal hernia containing fat. 5. Probable cholelithiasis. Dictated by: Vaibhav Louise M.D. on 04/24/2020 at 21:41 ECG Data Attestation: I personally reviewed and interpreted this ECG as follows: Interpretation: Sinus tachycardia at a rate of 137. Normal intervals, normal axis No acute ischemic changes MDM Narrative Medical decision making narrative: 75-year-old gentleman presents with acute mental status changes as of 10:00 a.m. this morning. His notes that he had stumbled and fallen landing on his right shoulder but she describes him not hitting his head. He has gotten progressively worse since this episode with slurred speech, global weakness and increasing overall confusion. He has had episodes of both vomiting and diarrhea along with urinary incontinence. Initial clinical presentation is that of and a acutely ill 75-year-old gentleman with significantly altered mental status, poor overall perfusion, hypertension, sinus tachycardia, no immediate localizing symptoms for infection and afebrile initial assumption is intracranial hemorrhage. CT scans returned negative. No evidence of cervical trauma. As labs returning the next most likely explanation is sepsis, will continue to look for a source. Will begin 30 per kilos fluid bolus as well as Zosyn for antibiotic coverage until further diagnoses are clarified. Will add CT scan of the abdomen to see if there might be in pathology contributing there. Blood work does show an anion gap however I suspect that that is more related to his lactic acidosis and overall poor perfusion rather than diabetic ketoacidosis in the setting of type 2 diabetes with a blood sugar in 300. Wilson catheter was placed and he drained 1200 cc of clear urine, moderate urinary retention clearly is an issue. Urinalysis comes back unremarkable, urine is not the infectious source Heart rate is still in the upper 120 range despite fluid resuscitation ongoing. Blood pressure remains dramatically elevated. Fever is now 103. He will be given rectal Tylenol and 0.5 mg of Dilaudid to see if there is a pain etiology that is causing the significant hypertension. Fluid resuscitation antibiotics continue. 1015pm patient remains in a sinus tachycardia, is almost 2 L into his fluid resuscitation, has received antibiotics and Tylenol. Remains significantly hypertensive. No source has been yet identified to explain the acute illness. Will moved to LP. Given his agitation he may need mild sedation, wheeze ketamine to avoid influencing blood pressure or respiratory status. 11:10 D-dimer returns within normal limits for age correction. LP was done with conscious sedation due to his agitation. All 4 tubes were light pink with tubes 1 and 4 the same color suggesting the possibility of subarachnoid hemorrhage. In light of this, will add nicardipine for blood pressure control with a goal of systolic in the 160 range. Will also begin non DKA insulin drip. He continues to maintain his airway, oxygenation and ventilation appropriately. 00:00 LP results are returning. From tube 4. There are 4250 white cells 13 red cells glucose is 147 (serum glucose is 290) and protein is elevated at 93. Will expand antibiotic coverage to include presumptive meningitis with vancomycin, ceftriaxone, as Zosyn has already be given will not add ampicillin at this time. 10 mg of IV Decadron will be given. 00:41 increasing agitation. Ativan has been helpful. Continues to complain of pain will add dilaudid. Airway remains uncompromised. Findings and plan are reviewed with his . Questions are answered. Also shared with her the incidental 3 cm mass suspicious for malignancy in the right lower lobe of his lung. 1:26 No CCU beds at [facility]. asked to look at [facility]'s next. CCU beds available, care is reviewed with ICU mask designer, Dr Frazier, who agrees that ICU admission is appropriate. Will try and push all radiology images to [facility]. Suggested trying sublingual zyprexa to help with agitation/sedation. 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 The red blood cell and white blood cell count were transposed. Correct white blood cell count for tube 4 is 13, red blood cell count is 4250. For tube 1, white blood cell count is 13 and red blood cell count is 4900. This shifts the primary diagnosis back to subarachnoid hemorrhage rather than meningitis. Error is discussed with Dr. Frazier. At this point patient is sleeping comfortably after sublingual Zyprexa, blood pressure is down to the 140/70 range and he remains significantly tachycardic in the [address] Frazier suggested a 2nd CT scan ( noted acute change at 10:00 a.m. this morning, initial CT scan was done at 820 in the evening and 2nd is now repeated at 2:00 a.m.) to see if there is any blood now seen on the CT scan. MRI is not available at this time and will be for approximately 5 more hours at the earliest. Unless subarachnoid hemorrhage is confirmed, patient will not meet ICU admission criteria, and admission with that go to the hospitalist service. 230am BP falling to 101/70. Responding to fluid bolus. Care was discussed with Dr Perez, hospitalist. He discussed care with Dr Frazier they confirmed that Dr Perez would be the admitting hospitalist. 250am bed and nurse available. Will arrange ALS transport. 4:02 Leaves with ALS transport. Blood pressure is steady at 125/80, heart rate remains sinus tach in the 120s. Fever is still present but trending down. Still unclear source of fever at this point. Meningitis looks less likely, urine is clean, no pulmonary source, no intra-abdominal source, no skin sores. Lactic acid has come down appropriately with initial fluid resuscitation. He still remains moderately sedated with Zyprexa in response to the significant agitation from the presumed subarachnoid hemorrhage. Airway, oxygenation and ventilation remain on compromise. Remains in critical condition but is stable and appropriate for transport to [facility] for admission and care by the hospitalist service. Critical Care Time Critical Care Time Critical Care Time: Yes Total Critical Care Time: 72 Attestation: Critical care time is separate from other billable procedures. This critical care time includes consultation with family and other consulting doctors, review of records, and interpretation of data from labs, EKGs and imaging as well as managements of acutely altered neuro status, continued significant hypertension, tachycardia increasing agitation and uncertain diagnosis with wide differential diagnosis. Discharge Plan Departure Patient Disposition: [facility] Clinical Impression: Acute alteration in mental status, Sinus tachycardia, Mass of right lung Hypertension Qualifiers: Hypertension type: other secondary hypertension Qualified Code(s): I15.8 - Other secondary hypertension Subarachnoid hem w/o coma Qualifiers: Encounter type: initial encounter Qualified Code(s): S06.6X0A - Traumatic subarachnoid hemorrhage without loss of consciousness, initial encounter Prescriptions: No Action atorvastatin 10 mg Tablet 10 mg PO BEDTIME RF: 0 glipizide 10 mg Tablet 10 mg PO BID RF: 0 ferrous sulfate 325 mg (65 mg iron) Tablet 325 mg PO DAILY RF: 0 metformin 1,000 mg Tablet 1,000 mg PO BID RF: 0 omeprazole 20 mg Capsule,Delayed Release(Dr/Ec) 20 mg PO DAILY RF: 0 aspirin 81 mg Tablet 81 mg PO DAILY RF: 0 Restraint [id number] Restraint [id number] Evaluation [id number] #1: Date: 04/25/20 Time: 00:28 Patient Appearance: Disheveled (acutely ill, acute delerium) Level of Consciousness: Combative and Disoriented Ability to Follow Directions: Poor Respirations: Normal respiratory rate and Unlabored Cardiac: Regular Rhythm (sinus tach) Circulation: Moves all extremities Behavior necessitating restraint: Agitated Restraint Risks: Damaged nerves and Damaged tissue Restraint risks explained to patient: No Restraint risks explained to family: Yes Reaction to Intervention: Agitated, Constant Movement Restraint Needs: Continue Restraints
[2020-04-24 21:03] LABS: Procalcitonin < 0.05 ng/mL (<0.5)
--- NOTE | 2020-04-24 21:09 | DI.CT.S_ITS ---
PROCEDURE: CT ABDOMEN PELVIS W CON INDICATIONS: sepsis, uncertain etiology TECHNIQUE: After the administration of intravenous contrast, 5 mm thick sections acquired from the diaphragm to the symphysis. 5 mm coronal and sagittal reformats were acquired. For radiation dose reduction, the following was used: automated exposure control, adjustment of mA and/or kV according to patient size. COMPARISON: [facility], CT, CT HEAD/BRAIN WO CON, 04/24/2020, 20:28. FINDINGS: Image quality: Excellent. ABDOMEN: Lung bases: 3 cm mass, right lower lobe. It has some central low density. Heart size is normal. Solid organs: There is a 1 cm hypodensity in the posterior segment of the right lobe of the liver, likely representing a cyst versus hemangioma. No suspicious solid liver masses are identified. Liver is normal in size and enhancement. There are probably small noncalcified gallstones in the gallbladder. There is no gallbladder wall thickening. Biliary system is non dilated. Pancreas enhances normally. Spleen is normal in size and enhancement. No adrenal nodules. Kidneys demonstrate normal size and enhancement, without hydronephrosis. Peritoneum and bowel: Bowel loops demonstrate normal wall thickness and caliber. No free fluid or air. Nodes and vessels: No retroperitoneal or mesenteric adenopathy by size criteria. Aorta and inferior vena cava are normal in size. Shotty lymph node anterior to the inferior vena cava on image 35/2, not suspicious by size criteria. Miscellaneous: No ventral hernias. PELVIS: Genitourinary: A Wilson catheter is present in the bladder. There is diffuse bladder wall thickening. The prostate is enlarged. Miscellaneous: Right inguinal hernia containing fat. No inguinal adenopathy. Bones: No suspicious bony lesions. No vertebral body compression fractures. IMPRESSION: 1. 3 cm mass, suspicious for malignancy, right lower lobe. 2. Probable hemangioma versus small cyst in the liver. 3. Prostate enlargement, indwelling Wilson, bladder wall thickening. 4. Right inguinal hernia containing fat. 5. Probable cholelithiasis. Dictated by: Vaibhav Louise M.D. on 04/24/2020 at 21:41 Approved by: Vaibhav Louise M.D. on 04/24/2020 at 21:48
[2020-04-24 21:18] LABS: Bacteria Urine None Seen
[2020-04-24 21:23] LABS: Appearance Urine UA CLEAR; Bilirubin Urine UA NEGATIVE (NEGATIVE); Color Urine UA YELLOW; Glucose Urine UA 2+ g/dL (Negative); Ketones Urine UA 1+ (NEGATIVE); Leukocyte Esterase Urine UA NEGATIVE (NEGATIVE); Nitrite Urine UA NEGATIVE (Negative); Occult Blood Urine UA 1+ (Negative); Protein Urine UA 3+ (Negative); Urobilinogen Urine UA 0.2 E.U./dL (0.2)
[2020-04-24 21:24] LABS: Culture Indicated Urine Cult Not Indicated; Hyaline Casts Urine 0-1/LPF; RBC Urine 1-5/HPF (0-5/HPF); WBC Urine 0-1/HPF (0-5/HPF)
--- NOTE | 2020-04-24 21:25 | CM.MNRNOTE ---
undressed pt and cleaned BM from pt with soap/water, repositioned and put up seizure pads to keep pt from sliding out the sides of the gurney as he was not remaining still in the gurney and being dangerously close to sliding out between the bars.
[2020-04-24 21:30] LABS: Ketones (Beta-Hydroxybutyrate) 0.71 mmol/L (<0.27)
[2020-04-24] MEDS: PIPERACILLIN/TAZO 4.5 GM in SODIUM CHLORIDE 0.9% 100 ML 200 ML IV (21:31)
[2020-04-24] MEDS: ACETAMINOPHEN 650 MG SUPP PR (21:54)
[2020-04-24] MEDS: SODIUM CHLORIDE 0.9% 825.54 ML IV (21:54)
[2020-04-24] MEDS: HYDROMORPHONE 0.5 MG INJ IV (21:58)
[2020-04-24 22:29] LABS: Reflexed Lactate in 2 Hours Y
[2020-04-24 22:32] LABS: D Dimer 295 ng/mL (<230)
[2020-04-24] MEDS: KETAMINE 500 MG/5 ML INJ 85 MG IV (22:45)
[2020-04-24] MEDS: KETAMINE 500 MG/5 ML INJ 30 MG IV (22:55)
[2020-04-24 22:57] LABS: Lactate 2HR (Lactic Acid Rflx) 3.1 mmol/L (0.7-2.1)
[2020-04-24] MEDS: LORazepam 2 MG/ML INJ 1 MG IV ×2 (23:06→23:59)
[2020-04-24 23:26] LABS: Glucose CSF 147 mg/dL (40-70); Total Protein CSF 93 mg/dL (12-60)
[2020-04-24] MEDS: INSULIN DRIP PREMIX 100 UNIT/100 ML PLAST..BAG 6 UNIT IV (23:32)
[2020-04-24 23:43] LABS: CSF Tube Number 1; CSF Tube Volume 1.0 mL
[2020-04-24 23:44] LABS: Appearance CSF Cloudy (Clear); Color CSF Pink (Colorless); Red Blood Cell CSF 4900 RBC /uL; White Blood Cell CSF 13 MONO/uL (0-5)
[2020-04-24 23:45] LABS: Appearance CSF Slightly Cloudy (Clear); CSF Tube Number 4; CSF Tube Volume 1.0 mL; Color CSF Pink (Colorless)
[2020-04-24 23:59] LABS: Mononuclear WBC CSF 14 %; Polynuclear WBC CSF 86 %
[2020-04-25] VITALS (50 sets, daily range): BP systolic 88–176; BP diastolic 51–82; PULSE 117–144; RESP 14–30; O2SAT 89–99
[2020-04-25] LABS: Mononuclear WBC CSF 18 %; Polynuclear WBC CSF 82 %
--- NOTE | 2020-04-25 | PC.NURSE ---
Procedural sedation administered per order by Dr Powell to facilitate lumbar puncture. gave verbal consent at bedside. RT called to room, for airway support. Pt given 85mg ketamine IV at 2244, then an additional 30 mg ketamine IV at 2255 for restlessness. CSF samples obtained. Pt became agitated with waking, nystagmus noted, pt thrashing about, trying to sit up and roll out of bed. 1mg ativan given per order, then an additional 1 mg ativan given per verbal order for continued emergence reaction. Pt now resting quietly. HR remains elevated 130's, BP now 160's/80's. Dr Powell aware. Insulin gtt running now at 6units/hr. Holding nicardepine with ok from Dr Powell.
[2020-04-25 00:04] LABS: HOLD TUBE CSF 4
[2020-04-25] MEDS: DEXAMETHASONE 10 MG/ML VIAL IV (00:13)
[2020-04-25] MEDS: CEFTRIAXONE 2 GM/50 ML FROZ.PIGGY IV (00:16)
[2020-04-25 00:36] LABS: Cryptococcus neoformans/gattii Not Detected (Not Detect); Enterovirus Not Detected (Not Detect); Escherichia coli K1 Not Detected (Not Detect); Haemophilus influenzae Not Detected (Not Detect); Herpes simplex virus 1 Not Detected (Not Detect); Herpes simplex virus 2 Not Detected (Not Detect); Human herpesvirus 6 Not Detected (Not Detect); Human parechovirus Not Detected (Not Detect); Listeria monocytogenes Not Detected (Not Detect); Neisseria meningitidis Not Detected (Not Detect); Streptococcus agalactiae Not Detected (Not Detect); Streptococcus pneumoniae Not Detected (Not Detect); Varicella Zoster Virus Not Detected (Not Detecte)
[2020-04-25] MEDS: HYDROMORPHONE 0.5 MG INJ IV (00:43)
[2020-04-25] MEDS: VANCOMYCIN 1,500 MG/300 ML PIGGYBACK 200 MG IV (00:48)
[2020-04-25] MEDS: HYDROMORPHONE 1 MG INJ IV (01:19)
[2020-04-25] MEDS: KETOROLAC 60 MG/2 ML VIAL 15 MG IV (01:19)
[2020-04-25 01:35] LABS: Red Blood Cell CSF 4250 RBC /uL; White Blood Cell CSF 13 MONO/uL (0-5)
[2020-04-25] MEDS: OLANZapine ODT 10 MG TAB PO (01:35)
--- NOTE | 2020-04-25 01:49 | DI.CT.S_ITS ---
PROCEDURE: CT HEAD/BRAIN WO CON INDICATIONS: SAH on LP. Compare to prior CT - any obvious bleeding now? TECHNIQUE: Noncontrast 4.5 mm thick angled axial sections acquired from the foramen magnum to the vertex, with coronal and sagittal reformats. For radiation dose reduction, the following was used: automated exposure control, adjustment of mA and/or kV according to patient size. COMPARISON: [facility], CT, CT HEAD/BRAIN WO CON, 04/24/2020, 20:28. FINDINGS: Image quality: Excellent. CSF spaces: Basal cisterns are patent. No extra-axial fluid collections. Ventricles are normal in size and shape. No intraventricular hemorrhage seen. Brain: No midline shift. No intracranial masses or hemorrhage. No area of hypodensity in a large vascular distribution to suggest acute infarction. Mild periventricular hypodensity consistent with chronic microvascular ischemic change. Age-related parenchymal loss. Skull and face: Small right lateral scalp hematoma is suspected. No underlying fracture. Sinuses: Mild mucosal thickening of the ethmoid air cells and left sphenoid sinus. Partially visualized maxillary sinuses are clear. Frontal sinuses clear. Minimal mucosal thickening in the right inferior mastoid air cell is seen. IMPRESSION: No acute intracranial abnormality identified. No hyperdense blood products seen. No interval change appreciated. This report is concordant with the overnight preliminary interpretation. Dictated by: Tommy Rainey M.D. on 04/25/2020 at 8:19 Approved by: Tommy Rainey M.D. on 04/25/2020 at 8:25
--- NOTE | 2020-04-25 03:03 | PC.NURSE ---
Pt is sedate after SL Zyprexa. Soft wrist restraints DC'd.
[2020-04-25 03:47] LABS: Adenovirus Not Detected (Not Detect); Bordetella pertussis Not Detected (Not Detect); Chlamydophila pneumoniae Not Detected (Not Detect); Coronavirus 229E Not Detected (Not Detect); Coronavirus HKU1 Not Detected (Not Detect); Coronavirus NL 63 Not Detected (Not Detect); Coronavirus OC43 Not Detected (Not Detect); Human Metapneumovirus Not Detected (Not Detect); Human Rhinovirus/Enterovirus Not Detected (Not Detect); Influenza A Not Detected (Not Detect); Influenza B Not Detected (Not Detect); Mycoplasma pneumoniae Not Detected (Not Detect); Parainfluenza Virus 1 Not Detected (Not Detect); Parainfluenza Virus 2 Not Detected (Not Detect); Parainfluenza Virus 3 Not Detected (Not Detect); Parainfluenza Virus 4 Not Detected (Not Detect); Respiratory Syncytial Virus Not Detected (Not Detect); SARS- CoV-2 Not Detected (Not Detecte)
== END 2020-04-25 04:00 | disposition short-term general hospital (02) ==
PROVIDERS: Emergency Provider Emergency Medicine
DX: S06.6X0A Traumatic subarachnoid hemorrhage without loss of consciousness, initial encounter (principal); R41.82 Altered mental status, unspecified; R91.8 Other nonspecific abnormal finding of lung field; R00.0 Tachycardia, unspecified; I15.8 Other secondary hypertension; R47.81 Slurred speech; E11.9 Type 2 diabetes mellitus without complications; I10 Essential (primary) hypertension; R11.10 Vomiting, unspecified; R19.7 Diarrhea, unspecified; S60.511A Abrasion of right hand, initial encounter; R50.9 Fever, unspecified; R05 Cough; N40.0 Benign prostatic hyperplasia without lower urinary tract symptoms; Z79.82 Long term (current) use of aspirin; Z20.822 Contact with and (suspected) exposure to COVID-19; R32 Unspecified urinary incontinence; W19.XXXA Unspecified fall, initial encounter
CPT/HCPCS: 36415; 51701; 62270; 70450; 71045; 72125; 74177; 80053; 81001; 82009; 82805; 82945; 82962; 83605; 83690; 83735; 83880; 84145; 84157; 84484; 85025; 85379; 85610; 86850; 86900; 86901; 87040; 87070; 87205; 87633; 87635; 87798; 89051; 93005; 96361; 96365; 96366; 96367; 96375; 96376; 99152; 99285; 99291; 99292; C9803; J0696; J1100; J1170; J1885; J2060; J2405; J2543; Q9967

== ENCOUNTER 2020-08-12 15:58 | Observation (INO) | payer OTHER, SELFPAY ==
[2020-08-12] VITALS (15 sets, daily range): BP systolic 125–196; BP diastolic 71–93; PULSE 87–110; RESP 14–24; TEMP 36.2–36.6; O2SAT 95–99; BMI 29.1
--- NOTE | 2020-08-12 17:19 | PC.NURSE ---
Per spouse, at bedside, onset 1445, slurred speech and facial asymmetry resolved at 1600. NIH 0 at assessment.
--- NOTE | 2020-08-12 17:36 | DI.CT.S_ITS ---
PROCEDURE: CT HEAD/BRAIN WO CON INDICATIONS: Possible TIA TECHNIQUE: Noncontrast 4.5 mm thick angled axial sections acquired from the foramen magnum to the vertex, with coronal and sagittal reformats. For radiation dose reduction, the following was used: automated exposure control, adjustment of mA and/or kV according to patient size. COMPARISON: [facility], CT, CT HEAD/BRAIN WO CON, 04/25/2020, 1:50. FINDINGS: Cerebrum, Cerebellum and Brainstem: Mild cerebral and cerebellar volume loss as well as minimal multifocal hypoattenuation in the deep and subcortical white matter present. No acute hemorrhage or mass effect. Jeffries-white distinction is preserved throughout the exam. Basal cisterns and foramen magnum are clear. Ventricles: Appropriate in size and position given the amount of cerebral atrophy. No evidence of hydrocephalus. Skull Base: The bony sella, pituitary gland and infundibulum are unremarkable. Clivus and craniovertebral relationships are appropriate. Visualized portions of external auditory canals and tympanic cavities are within normal limits. Calvarium and Scalp: No scalp soft tissue swelling. The underlying calvarium is intact without skull fracture or lytic lesion. Paranasal Sinuses: Unremarkable as visualized. No mucosal thickening or retention cyst noted. Mastoids: Unremarkable as visualized. No mastoid effusion present. Other: Atherosclerotic calcification in the cavernous portions of the distal internal carotid and intradural vertebral arteries are noted. IMPRESSION: Atrophy and chronic ischemic changes without acute hemorrhage or mass effect. No CT evidence of large territory acute infarct. Dictated by: Jeremiah Parada M.D. on 08/12/2020 at 16:53 Approved by: Jeremiah Parada M.D. on 08/12/2020 at 16:56
[2020-08-12 17:41] LABS: Add Manual Diff / Slide Review NO; Basophils Absolute Auto 0 /uL (0-100); Basophils Percent Auto 0.5 % (0-2); Eosinophils Absolute Auto 100 /uL (0-450); Hematocrit 38.8 % (41-53); Hemoglobin 13.2 g/dL (13.5-17.5); Lymphocytes Absolute Auto 700 /uL (1100-4500); Lymphocytes Percent Auto 11.1 % (25-40); Mean Corpuscular Hemoglobin 30.7 PG (26-34); Mean Corpuscular Volume 90.3 fL (80-100); Monocytes Absolute Auto 400 /uL (0-900); Monocytes Percent Auto 5.6 % (3-14); Neutrophils Absolute Auto 5400 /uL (1500-7000); Neutrophils Percent Auto 81.8 % (50-75); Platelet Count 225 X10^3/uL (150-400); Red Cell Distribution Width 13.1 % (11.6-14.8); White Blood Cell Count 6.5 X10^3/uL (4.5-11.0)
[2020-08-12 17:44] LABS: INR 1.1 (0.9-1.3); Prothrombin Time 11.8 SECONDS (10.1-12.7)
[2020-08-12 17:46] LABS: PTT Partial Thromboplastin Tim 32 SECONDS (26.4-36.2)
[2020-08-12 17:48] LABS: Alanine Aminotransferase 20 IU/L (<50); Albumin 4.4 g/dL (3.5-5.0); Albumin Globulin Ratio 1.5 (1.0-2.8); Alkaline Phosphatase 84 U/L (38-126); Aspartate Aminotransferase 23 IU/L (17-59); BUN Creatinine Ratio 18.3 (6-22); Bilirubin Total 0.2 mg/dL (0.2-1.3); Blood Urea Nitrogen 22 mg/dL (9-20); Calcium 9.7 mg/dL (8.4-10.2); Carbon Dioxide 28 mmol/L (22-32); Chloride 101 mmol/L (98-107); Estimated Glomerular Filt Rate 59.2 mL/min (>60); Ethanol (ETOH) < 10 mg/dL; Glucose 204 mg/dL (80-110); HEMOLYSIS < 15 (0-50); Lipase 285 U/L (23-300); Potassium 4.7 mmol/L (3.4-5.1); Sodium 138 mmol/L (137-145); Total Protein 7.4 g/dL (6.3-8.2)
[2020-08-12 18:13] LABS: UR Morphine/Opiate cutoff 300 Negative (Negative); Ur Creatinine Normal (Normal); Ur Specific Gravity Normal (Normal); Urine Amphetamines Negative (Negative); Urine Barbiturates Negative (Negative); Urine Benzodiazepines Negative (Negative); Urine Cocaine Negative (Negative); Urine MDMA Negative (Negative); Urine Methadone Negative (Negative); Urine Methamphetamines Negative (Negative); Urine Oxycodone Negative (Negative); Urine Phencyclidine Negative (Negative); Urine Tetrahydrocannabinol Negative (Negative); Urine Tricyclic Antidepressant Negative (Negative); Urine pH Normal (Normal)
--- NOTE | 2020-08-12 18:18 | ED_ITS ---
HPI - Neuro Symptoms/Deficit General Chief Complaint: Neuro Symptoms/Deficit Stated Complaint: meningitis, herpes, cancer, memory issues Time Seen by Provider: 08/12/20 17:34 Source: patient and family () Mode of arrival: Ambulatory Limitations: no limitations History of Present Illness HPI Narrative: Patient is a 75-year-old male who is here with his for evaluation of confusion. Patient and his states that just before 0300 hours this afternoon he had an episode where he seemed to be slurring his words and seemed confused. Unsure as to how long the symptoms lasted however they did seem to be resolved by the time he arrived here in the emergency department. He had similar symptoms several months ago when he was diagnosed with what sounds like herpes encephalitis/meningitis. During that time he was also diagnosed with lung cancer. Since then he has had a lobectomy. He is not undergoing chemotherapy or radiation because he states that they were able to remove all of the cancer with a resection. He is a pbd-izrgeke-[id number] diabetic. At the time my evaluation patient has no complaints. On Anticoagulants: No Related Data Home Medications Medication Instructions Recorded Confirmed aspirin 81 mg PO DAILY 04/24/20 04/24/20 atorvastatin 10 mg PO BEDTIME 04/24/20 04/24/20 ferrous sulfate 325 mg PO DAILY 04/24/20 04/24/20 glipizide 10 mg PO BID 04/24/20 04/24/20 metformin 1,000 mg PO BID 04/24/20 04/24/20 omeprazole 20 mg PO DAILY 04/24/20 04/24/20 Allergies Allergy/AdvReac Type Severity Reaction Status Date / Time No Known Drug Allergies Allergy Verified 04/24/20 22:02 Review of Systems Constitutional Constitutional: Denies chills and Denies headache(s) Eyes Eyes: Denies change in vision ENT Ears, Nose, Mouth, and Throat: Denies dizziness and Denies headache(s) Cardiovascular Cardiovascular: Denies chest pain and Denies dyspnea Respiratory Respiratory: Denies dyspnea Gastrointestinal Gastrointestinal: Denies abdominal pain Genitourinary Genitourinary: Denies dysuria Genitourinary: Denies dysuria Integumentary/Breasts Skin/Breast: Denies rash Neurologic Neurologic: Reports abnormal speech, Reports confusion, Denies dizziness and Denies headache(s) Psychiatric Psychiatric: Reports confusion Hematologic/Lymphatic On Anticoagulants: No Allergic/Immunologic Allergic/Immunologic: Denies urticaria Patient History Medical History BPH (benign prostatic hyperplasia) Diabetes Hypertension Social History household members: spouse Smoking Status: Former smoker alcohol intake: former Smoking Status: Former smoker Substance Use Type: does not use Exam Initial Vital Signs Initial Vital Signs: Vital Signs Temperature 97.7 F 08/12/20 16:05 Pulse Rate 110 H 08/12/20 16:05 Respiratory Rate 18 08/12/20 16:05 Blood Pressure 196/93 H 08/12/20 16:05 Pulse Oximetry 99 08/12/20 16:05 Const General: cooperative and comfortable Limitations: mental status not altered HENMT Head: normal to inspection and normocephalic Nose: external nose normal Eyes General: appearance normal, both eyes and all related structures Resp Effort & Inspection: normal respiratory effort Auscultation: clear to auscultation bilaterally Cardio Rate: regular rate Rhythm: regular rhythm GI Inspection: non-distended Palpation: soft Skin Lesions: no lesions Rashes: no rashes Neuro General: patient alert, patient awake and patient oriented x3 Cranial Nerves: CN's II-XI intact bilaterally Cognition: normal cognition Speech: speech normal Motor: muscle tone normal throughout Sensory Exam: no sensory deficits noted Extrem General: normal to inspection and capillary refill normal Psych Appearance: grossly normal and well kempt Scores GCS Elmer coma scale eye opening: Spontaneous Spencer coma scale verbal response: Orientated Elmer coma scale motor response: Obey commands Elmer coma scale total score: 15 NIH Stroke Scale Level of Conciousness: Alert, keenly responsive Ask month/age: Answers both questions correctly. Open/close eyes, close hand: Performs both tasks correctly Best gaze horizontal: Normal Visual patel: No visual loss Facial palsy: Normal symetrical movement Left arm drift: No drift for full 10 sec Right arm drift: No drift for full 10 sec Left leg drift: No drift for full 5 sec Right leg drift: No drift for full 5 sec Limb ataxia: Absent Sensory on face/arms/legs: Normal, no sensory loss Best language: No aphasia, normal Dysarthria: Normal Extinction or inattention: No abnormality Total NIH Stroke scale score: 0 Course Orders Ordered: ED Orders 08/12/20 17:10 Complete Blood Count AUTO DIFF Stat Comprehensive Metabolic Panel Stat Ethanol (ETOH) Stat Hemoglobin A1C% w Est Avg Glu Urgent Lipase Stat Magnesium Urgent Partial Thromboplastin Time Stat Prothrombin Time INR Stat Thyroid Stimulating Hormone Urgent Troponin I Urgent 08/12/20 17:30 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) Stat 08/12/20 17:36 CT head/brain wo con Stat EKG-12 Lead Stat 08/12/20 17:45 Urine Drug Screen, Rapid Stat 08/12/20 19:28 Consult to Discharge Planning Routine Consult to Occupational Therapy Evaluate & Treat Consult to Physical Therapy Evaluate & Treat Consult to Speech Therapy Evaluate & Treat MR stroke Stat 08/12/20 19:34 EC echo doppler complete Urgent MR stroke Stat 08/13/20 05:00 Basic Metabolic Panel DAILY Complete Blood Count AUTO DIFF DAILY Lipid Panel Routine NT-proBNP (BNP-Adult 18+) Routine Phosphorous Routine Prothrombin Time INR DAILY 08/14/20 05:00 Basic Metabolic Panel DAILY Complete Blood Count AUTO DIFF DAILY Prothrombin Time INR DAILY 08/15/20 05:00 Basic Metabolic Panel DAILY Complete Blood Count AUTO DIFF DAILY Prothrombin Time INR DAILY Acetaminophen (Acetaminophen 325 Mg Tablet) 650 mg PO Q6HR PRN PRN Reason: Fever/Mild Pain (1-3) Al Hydrox/Mg Hydrox/Simethicone (Mag Hydrox/Alum/Simeth 30 Ml Udc) 30 ml PO Q6HR PRN PRN Reason: Dyspepsia Aspirin (Aspirin Ec 81 Mg Tablet) 81 mg PO DAILY [facility] Atorvastatin Calcium (Atorvastatin 20 Mg Tablet) 80 mg PO BEDTIME [facility] Last Admin: 08/12/20 22:27 Dose: 80 mg Documented by: BERNADINE Clopidogrel Bisulfate (Clopidogrel 75 Mg Tablet) 75 mg PO DAILY [facility] Dextrose (Dextrose 50 % In Water 25 Gm/50 Ml Syringe) 25 gm IV PRN PRN PRN Reason: Hypoglycemia Docusate Sodium (Docusate 100 Mg Capsule) 100 mg PO BID [facility] Last Admin: 08/12/20 22:26 Dose: 100 mg Documented by: BERNADINE Insulin Human Lispro (Insulin Lispro 100 Unit/Ml 3ml Vial) 0 unit SUBCUT ACHS [facility]; Protocol Last Admin: 08/12/20 22:30 Dose: Not Given Documented by: BERNADINE Naloxone HCl (Naloxone 0.4 Mg/Ml Vial) 0.2 mg IV Q2MIN PRN PRN Reason: Opiate Reversal Ondansetron HCl (Ondansetron 4 Mg Odt) 4 mg PO Q8HR PRN PRN Reason: Nausea And Vomiting Oxycodone HCl (Oxycodone Ir 5 Mg Tablet) 5 mg PO Q6HR PRN PRN Reason: Pain, Moderate (4-6) Pantoprazole Sodium (Pantoprazole Dr 20 Mg Tablet) 20 mg PO 0600 ADRIEN Sennosides (Sennosides 8.6 Mg Tablet) 17.2 mg PO BEDTIME ADRIEN Last Admin: 08/12/20 22:26 Dose: 17.2 mg Documented by: BERNADINE Discontinued Medications Aspirin (Aspirin 81 Mg Chew Tab) 324 mg PO NOW ONE Stop: 08/12/20 18:33 Last Admin: 08/12/20 18:40 Dose: 324 mg Documented by: CONNOR Vital Signs Vital signs: Vital Signs - 8 hr 08/12/20 16:05 08/12/20 18:27 08/12/20 18:29 Temperature 97.7 F Pulse Rate 110 H 99 H 89 Respiratory Rate 18 24 15 Blood Pressure 196/93 H Pulse Oximetry 99 95 98 08/12/20 18:30 08/12/20 19:00 08/12/20 19:16 Temperature Pulse Rate 89 87 93 H Respiratory Rate 17 15 20 Blood Pressure 184/86 H 184/86 H Pulse Oximetry 98 98 98 08/12/20 19:30 Temperature Pulse Rate 90 Respiratory Rate 18 Blood Pressure Pulse Oximetry 99 MDM - Neuro Symptoms/Deficit Lab Data Attestation: I reviewed the patient's lab results. Result diagrams: 08/12/20 17:10 08/12/20 17:10 Labs: Lab Results 08/12/20 08/12/20 08/12/20 Range/Units 17:10 17:10 17:10 WBC 6.5 (4.5-11.0) X10^3/uL RBC 4.30 L (4.5-5.9) X10^6/uL Hgb 13.2 L (13.5-17.5) g/dL Hct 38.8 L (41-53) % MCV 90.3 (80-100) fL MCH 30.7 (26-34) PG MCHC 34.0 (30-36) % RDW 13.1 (11.6-14.8) % Plt Count 225 (150-400) X10^3/uL Neut % (Auto) 81.8 H (50-75) % Lymph % (Auto) 11.1 L (25-40) % Mccreary % (Auto) 5.6 (3-14) % Eos % (Auto) 1.0 L (2-4) % Baso % (Auto) 0.5 (0-2) % Neut # (Auto) 5400 (8922-1962) /uL Lymph # (Auto) 700 L (5468-0413) /uL Mccreary # (Auto) 400 (0-900) /uL Eos # (Auto) 100 (0-450) /uL Baso # (Auto) 0 (0-100) /uL PT 11.8 (10.1-12.7) SECONDS INR 1.1 (0.9-1.3) APTT 32 (26.4-36.2) SECONDS Sodium 138 (137-145) mmol/L Potassium 4.7 (3.4-5.1) mmol/L Chloride 101 (98-107) mmol/L Carbon Dioxide 28 (22-32) mmol/L BUN 22 H (9-20) mg/dL Creatinine 1.20 (0.66-1.25) mg/dL Estimated GFR 59.2 L (>60) mL/min BUN/Creatinine Ratio 18.3 (6-22) Glucose 204 H (80-110) mg/dL Hemoglobin A1c (4.0-6.0) % Calcium 9.7 (8.4-10.2) mg/dL Magnesium (1.6-2.3) mg/dL Total Bilirubin 0.2 (0.2-1.3) mg/dL AST 23 (17-59) IU/L ALT 20 (<50) IU/L Alkaline Phosphatase 84 (38-126) U/L Troponin I (0.01-0.034) ng/mL Total Protein 7.4 (6.3-8.2) g/dL Albumin 4.4 (3.5-5.0) g/dL Globulin 3.0 (1.7-4.1) g/dL Albumin/Globulin Ratio 1.5 (1.0-2.8) Lipase 285 (23-300) U/L TSH (0.47-4.68) uIU/mL U Opiates 300ng/mL cut (Negative) Ur Oxycodone Screen (Negative) Urine Methadone Screen (Negative) Ur Barbiturates Screen (Negative) U Tricyclic Antidepress (Negative) Ur Phencyclidine Scrn (Negative) Ur Amphetamines Screen (Negative) U Methamphetamines Scrn (Negative) Ur MDMA Scrn (Ecstasy) (Negative) U Benzodiazepines Scrn (Negative) Urine Cocaine Screen (Negative) U Marijuana (THC) Screen (Negative) Ethyl Alcohol < 10 ( - 10) mg/dL SARS-CoV-2 (PCR) (Negative) 08/12/20 08/12/20 08/12/20 Range/Units 17:10 17:10 17:10 WBC (4.5-11.0) X10^3/uL RBC (4.5-5.9) X10^6/uL Hgb (13.5-17.5) g/dL Hct (41-53) % MCV (80-100) fL MCH (26-34) PG MCHC (30-36) % RDW (11.6-14.8) % Plt Count (150-400) X10^3/uL Neut % (Auto) (50-75) % Lymph % (Auto) (25-40) % Mccreary % (Auto) (3-14) % Eos % (Auto) (2-4) % Baso % (Auto) (0-2) % Neut # (Auto) (8060-7466) /uL Lymph # (Auto) (5399-0037) /uL Mccreary # (Auto) (0-900) /uL Eos # (Auto) (0-450) /uL Baso # (Auto) (0-100) /uL PT (10.1-12.7) SECONDS INR (0.9-1.3) APTT (26.4-36.2) SECONDS Sodium (137-145) mmol/L Potassium (3.4-5.1) mmol/L Chloride (98-107) mmol/L Carbon Dioxide (22-32) mmol/L BUN (9-20) mg/dL Creatinine (0.66-1.25) mg/dL Estimated GFR (>60) mL/min BUN/Creatinine Ratio (6-22) Glucose (80-110) mg/dL Hemoglobin A1c 7.5 H (4.0-6.0) % Calcium (8.4-10.2) mg/dL Magnesium (1.6-2.3) mg/dL Total Bilirubin (0.2-1.3) mg/dL AST (17-59) IU/L ALT (<50) IU/L Alkaline Phosphatase (38-126) U/L Troponin I < 0.012 (0.01-0.034) ng/mL Total Protein (6.3-8.2) g/dL Albumin (3.5-5.0) g/dL Globulin (1.7-4.1) g/dL Albumin/Globulin Ratio (1.0-2.8) Lipase (23-300) U/L TSH 2.29 (0.47-4.68) uIU/mL U Opiates 300ng/mL cut (Negative) Ur Oxycodone Screen (Negative) Urine Methadone Screen (Negative) Ur Barbiturates Screen (Negative) U Tricyclic Antidepress (Negative) Ur Phencyclidine Scrn (Negative) Ur Amphetamines Screen (Negative) U Methamphetamines Scrn (Negative) Ur MDMA Scrn (Ecstasy) (Negative) U Benzodiazepines Scrn (Negative) Urine Cocaine Screen (Negative) U Marijuana (THC) Screen (Negative) Ethyl Alcohol ( - 10) mg/dL SARS-CoV-2 (PCR) (Negative) 08/12/20 08/12/20 08/12/20 Range/Units 17:10 17:30 17:45 WBC (4.5-11.0) X10^3/uL RBC (4.5-5.9) X10^6/uL Hgb (13.5-17.5) g/dL Hct (41-53) % MCV (80-100) fL MCH (26-34) PG MCHC (30-36) % RDW (11.6-14.8) % Plt Count (150-400) X10^3/uL Neut % (Auto) (50-75) % Lymph % (Auto) (25-40) % Mccreary % (Auto) (3-14) % Eos % (Auto) (2-4) % Baso % (Auto) (0-2) % Neut # (Auto) (5445-3085) /uL Lymph # (Auto) (5771-4068) /uL Mccreary # (Auto) (0-900) /uL Eos # (Auto) (0-450) /uL Baso # (Auto) (0-100) /uL PT (10.1-12.7) SECONDS INR (0.9-1.3) APTT (26.4-36.2) SECONDS Sodium (137-145) mmol/L Potassium (3.4-5.1) mmol/L Chloride (98-107) mmol/L Carbon Dioxide (22-32) mmol/L BUN (9-20) mg/dL Creatinine (0.66-1.25) mg/dL Estimated GFR (>60) mL/min BUN/Creatinine Ratio (6-22) Glucose (80-110) mg/dL Hemoglobin A1c (4.0-6.0) % Calcium (8.4-10.2) mg/dL Magnesium 1.4 L (1.6-2.3) mg/dL Total Bilirubin (0.2-1.3) mg/dL AST (17-59) IU/L ALT (<50) IU/L Alkaline Phosphatase (38-126) U/L Troponin I (0.01-0.034) ng/mL Total Protein (6.3-8.2) g/dL Albumin (3.5-5.0) g/dL Globulin (1.7-4.1) g/dL Albumin/Globulin Ratio (1.0-2.8) Lipase (23-300) U/L TSH (0.47-4.68) uIU/mL U Opiates 300ng/mL cut Negative (Negative) Ur Oxycodone Screen Negative (Negative) Urine Methadone Screen Negative (Negative) Ur Barbiturates Screen Negative (Negative) U Tricyclic Antidepress Negative (Negative) Ur Phencyclidine Scrn Negative (Negative) Ur Amphetamines Screen Negative (Negative) U Methamphetamines Scrn Negative (Negative) Ur MDMA Scrn (Ecstasy) Negative (Negative) U Benzodiazepines Scrn Negative (Negative) Urine Cocaine Screen Negative (Negative) U Marijuana (THC) Screen Negative (Negative) Ethyl Alcohol ( - 10) mg/dL SARS-CoV-2 (PCR) Negative (Negative) Urine Dip Bedside Urine Glucose Negative Bedside Urine Bilirubin - Negative Urine Specific [place] 1.025 Bedside Urine Occult Blood +/- Bedside Urine pH 6.0 Bedside Urine Protein ++ 100 Bedside Urine Urobilinogen +/- 1mg Bedside Urine Nitrite - Negative Bedside Urine Leukocytes - Negative Esterase Imaging Data CT scan - head: Radiologist's Impression: [address] [id number] Scan ReportSigned Patient: Yimi HarmonMR#: [id number]: 6Acct:[id number]/Sex: 75 / MDate of Service: 08/12/20Loc: EDAccession Number: [id number] Procedure: CT head/brain wo con Ordering Provider: David Corbett D.O. PROCEDURE: CT HEAD/BRAIN WO CON INDICATIONS: Possible TIA TECHNIQUE: Noncontrast 4.5 mm thick angled axial sections acquired from the foramen magnum to the vertex, with coronal and sagittal reformats. For radiation dose reduction, the following was used: automated exposure control, adjustment of mA and/or kV according to patient size. COMPARISON: [facility], CT, CT HEAD/BRAIN WO CON, 04/25/2020, 1:50. FINDINGS: Cerebrum, Cerebellum and Brainstem: Mild cerebral and cerebellar volume loss as well as minimal multifocal hypoattenuation in the deep and subcortical white matter present. No acute hemorrhage or mass effect. Jeffries-white distinction is preserved throughout the exam. Basal cisterns and foramen magnum are clear. Ventricles: Appropriate in size and position given the amount of cerebral atrophy. No evidence of hydrocephalus. Skull Base: The bony sella, pituitary gland and infundibulum are unremarkable. Clivus and craniovertebral relationships are appropriate. Visualized portions of external auditory canals and tympanic cavities are within normal limits. Calvarium and Scalp: No scalp soft tissue swelling. The underlying calvarium is intact without skull fracture or lytic lesion. Paranasal Sinuses: Unremarkable as visualized. No mucosal thickening or retention cyst noted. Mastoids: Unremarkable as visualized. No mastoid effusion present. Other: Atherosclerotic calcification in the cavernous portions of the distal internal carotid and intradural vertebral arteries are noted. IMPRESSION: Atrophy and chronic ischemic changes without acute hemorrhage or mass effect. No CT evidence of large territory acute infarct. Dictated by: Jeremiah Parada M.D. on 08/12/2020 at 16:53 Approved by: Jeremiah Parada M.D. on 08/12/2020 at 16:56 ECG Data Attestation: I personally reviewed and interpreted this ECG as follows: Prior ECG tracings: not available for review Interpretation: Sinus rhythm Jugular rate 90 Normal axis Normal QRS Normal QTC No ST T wave changes MDM Narrative Medical decision making narrative: Patient and his states that he is back to normal. Head CT is unremarkable. Labs and EKG are unremarkable. His symptoms are concerning for TIA. I did discuss the case with Dr. Kilgore with Internal Medicine who will admit for further evaluation of this TIA. He was given aspirin here in the ER. I did discuss the patient and his our concerns about his presentation and the need for admission. They expressed understanding and agreement. Discharge Plan Departure Patient Disposition: Admitted as Observation Clinical Impression: Transient cerebral ischemia Admit Date/Time: 08/12/20 19:48 Admit Provider: Jared Kilgore
[2020-08-12 18:36] LABS: COVID19 - ADMIT (NP swab/PCR) Negative (Negative)
[2020-08-12] MEDS: ASPIRIN 81 MG CHEW TAB 324 MG PO (18:40)
--- NOTE | 2020-08-12 19:28 | DI.MRI.S_ITS ---
PROCEDURE: MR STROKE Pre- and post-contrast brain MRI, non-contrast brain MR angiogram, pre- and postcontrast neck MR angiogram INDICATIONS: R/O TIA TECHNIQUE: Brain: Noncontrast axial T1 spin echo, axial T2 fast spin echo, sagittal and axial FLAIR, coronal T2 fast spin echo, axial gradient echo, axial diffusion and ADC through the brain. After the administration of contrast, axial 3D VIBE of the cranial vasculature and brain. Brain MRA: Non-contrast 3-D time of flight MR angiogram, with multiple ggfyqte-tlxdrcelg-dbkreuljta (MIP) reformats performed. Neck MRA: Axial and sagittal TruFISP through the neck. Coronal dynamic MR angiogram during administration of contrast in the arterial and venous phases, with 3-dimenstional gdecbor-xaxebiynl-isebsordwy (MIP) reformats constructed from subtraction images. COMPARISON: Outside Film, MR, MR BRAIN WITH/WITHOUT CONTRAST, 04/26/2020, 16:24. [facility], CT, CT HEAD/BRAIN WO CON, 08/12/2020, 17:48. FINDINGS: Image quality: Excellent. BRAIN: CSF spaces: Ventricles are normal in size and shape. Basal cisterns are patent. No extra-axial fluid collections. Brain: No intracranial bleeds or mass effects. Scattered periventricular T2/FLAIR hyperintensities suggestive of mild microvascular ischemic changes. Jeffries-white matter interface is normal. Diffusion weighted images show no acute ischemic insults. Brainstem appears normal. Normal intravascular flow voids are present. No abnormal intracranial enhancement. Skull and face: Calvarial marrow signal is normal. Orbits appear normal. Sinuses: Mild diffuse paranasal sinus mucosal thickening. BRAIN MR ANGIOGRAM: Anterior circulation: Intracranial internal carotid arteries are normal in size and enhancement. The flow within the paired anterior cerebral arteries is normal and symmetric. No significant flow limiting stenosis. Very mild right cavernous supra clinoid stenosis. The flow within the middle cerebral arteries is normal and symmetric. The anterior communicating artery is seen. No stenoses, occlusions, or aneurysms. Posterior circulation: The visualized portions of the vertebral arteries demonstrate normal caliber, and join to form a normal appearing basilar artery. The flow within the posterior cerebral arteries is normal and symmetric. No stenoses, occlusions, or aneurysms. NECK MR ANGIOGRAM: Carotids: Great vessels demonstrate a conventional anatomy as they arise from the aortic arch. The origins of the common carotid arteries appear patent. The calibers and courses of both common carotid arteries are normal. The bifurcation regions appear normal bilaterally. The internal carotid arteries demonstrate normal course and caliber. Posterior circulation: The origins of the vertebral arteries appear patent. More superior portions of both vertebral arteries demonstrate normal course and caliber, and join to form a normal appearing basilar artery. Miscellaneous: Subclavian arteries appear patent. Pre-contrast images through the neck show no soft tissue abnormalities. There is a right-sided pleural effusion. IMPRESSION: BRAIN MRI: Findings suggestive of mild microvascular ischemic changes without evidence of acute ischemia. BRAIN MR ANGIOGRAM: No significant flow-limiting stenosis or other suspicious vascular abnormality. NECK MR ANGIOGRAM: No significant flow-limiting stenosis or other suspicious vascular abnormality. Right-sided pleural effusion. Dictated by: Javier Yan D.O. on 08/13/2020 at 7:54 Approved by: Javier Yan D.O. on 08/13/2020 at 8:08
--- NOTE | 2020-08-12 19:34 | DI.ECHO.S_ITS ---
Version: 1 Study ID: [id number] [place] [address] Name: TYLOR PARIKH Study Date: 08/13/2020, 10: 19 AM : 1945 BP: 140 / 71 mmHg Gender: Male Height: 67 in Age: 75 Years Weight: 186 lb BSA: 1.96 mA? Ordering: DUSTIN TAPIA Referring: DUSTIN TAPIA Clinician: Beny Koehler Reason For Study: TIA History: Summary Statements This is a technically difficult study enhanced with Definity echo contrast. Normal sinus rhythm. Normal LV size and wall thickness. Mild global hypokinesis. Ejection fraction is estimated at 35-40%. No significant valvular abnormalities. Normal chamber sizes. There is no prior echo available for comparison. Procedure: A two-dimensional transthoracic echocardiogram with color flow and Doppler was performed. The study quality was technically good. There is no prior echocardiogram noted for this patient. A contrast injection of Definity was performed to improve assessment of LV function. The patient was in sinus rhythm with heart rates between 88-92 bpm during the exam. Left Ventricle: Diastolic function could not be accurately assessed due to unobtainable data. Left ventricular systolic function is moderately reduced. Left ventricular ejection fraction is estimated to be 40 +/- 5%. The left ventricle is normal in size. Left ventricular wall thickness is mildly increased. There is moderate global hypokinesis of the left ventricle. Right Ventricle: The right ventricle is normal in size and function. Atria: There is no Doppler evidence for an interatrial shunt. Both atria are normal in size. Mitral Valve: There is no mitral regurgitation noted. The mitral valve is normal in structure and function. Aortic Valve: No aortic regurgitation is present. The aortic valve is normal in structure and function. Tricuspid Valve: No tricuspid regurgitation. Pulmonary artery pressures cannot be estimated because of the lack of a measurable TR jet velocity but the IVC suggests a CVP of around 3 mmHg. The tricuspid valve is normal in structure and function. Pulmonic Valve: There is no pulmonic valvular regurgitation. The pulmonic valve is not well seen, but is grossly normal. Great Vessels: The dimensions of the ascending aorta are normal. The aortic root is normal size. The IVC is of normal diameter and collapses greater than 50% with a sniff. This suggests a low right atrial pressure of 3 mm Hg. Pericardium/ Pleura: There is no pericardial effusion. There is no pleural effusion. 2D and M-Mode Measurements and Calculations LVIDd: 5.5 cm LVOT diam: 2.26 cm LVIDs: 4.4 cm Ao root diam: 3.4 cm IVSd: 1.26 cm asc Aorta Diam: 3.1 cm LVPWd: 1.05 cm LV moreno. diameter/BSA (cm/m^2): 2.8 LV sys. diameter/BSA (cm/m^2): 2.24 TAPSE: 2.17 cm LA A4 area: 18.1 instrument and control technician? RA area: 15.4 instrument and control technician? LA A2 area: 20.3 instrument and control technician? RA long axis: 4.9 cm LA length (vol): 5.2 cm RA vol: 40.8 ml LA vol: 59.7 ml RA : 20.8 ml/mA? LA vol index: 30.4 ml/mA? Doppler Measurements and Calculations Ao V2 max: 103.0 cm/sec LVOT Max Giorgio: 71.3 cm/sec Ao V2 mean: 78.4 cm/sec LV V1 max P.03 mmHg Ao V2 VTI: 20.5 cm LV V1 VTI: 14.9 cm Ao max P.2 mmHg Ao mean P.7 mmHg AMADEO(I,D): 2.9 instrument and control technician? AMADEO(V,D): 2.8 instrument and control technician? AMADEO indexed to BSA (cm^2/m^2): 1.49 sev ratio: 0.73 MV E max giorgio: 74.4 cm/sec MV dec time: 0.12 sec MV A max giorgio: 100.0 cm/sec MV E/A: 0.74 Med Peak E' Giorgio: 3.8 cm/sec Lat Peak E' Giorgio: 5.9 cm/sec E/e' average: 16.0 Electronically signed by: Tammie Del Castillo M.D. 08/13/2020, 4: 47 PM
--- NOTE | 2020-08-12 20:40 | PM.HP.1 ---
History of Present Illness History of Present Illness Date Patient Seen: 08/12/20 Time Patient Seen: 19:40 Chief complaint: meningitis, herpes, cancer, memory issues Narrative: Patient is a 75-year-old male Yimi Harmon who presented to the ED following an episode of right facial drooping and slurred speech symptoms had resolved by the time the patient presented to the ED this evening. Patient states that his 's observe the facial droop and slurred speech at approximately 2:00 p.m., the patient was unaware patient denies at the time any diaphoresis, chest pain, changes in vision, balance or coordination issues, any weakness in arms or legs, difficulty swallowing, shortness of, abdominal pain, nausea, vomiting, or falls. The patient stated that his facial droop and slurred speech resolved by approximately 330 as observed by his and arrived at the ED from [place] at approximately 4:00 p.m. Patient denies any recent illness, injury, or trauma. Patient reports that April 24, 2020 he was admitted to the ED and was subsequently transferred to [facility] for meningitis herpetic encephalopathy and new onset right lower lobe lung cancer, at which time he underwent a right lower lobectomy. Patient's oncologist is Dr. Franco at [facility]. He states he has had no other episodes of facial droop or slurred speech prior Patient has a history type 2 diabetes non-insulin dependent which the patient reports was from Agent [place] during [place], Right lower lobe Cancer with Lobectomy, and hyperlipidemia. Patient's vital signs upon admit temp 97.7?, BP 184/86, RR 15, O2 saturation 98% on room air. Labs: HGB 13.2, HCT 38.8, BUN 22, glucose 204, EGFR 59.2. Lipase within normal limits. Head CT:Atrophy and chronic ischemic changes without acute hemorrhage or mass effect. No CT evidence of large territory acute infarct. EKG: I personally reviewed normal sinus rhythm with a rate of [address] or T-wave changes compared to previous EKG which I also reviewed. 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 is currently being worked up for atrial fibrillation and consult with Oncology Environment Been Physically Hurt or No Threatened By a Person Tobacco & Substance use: Smoking Status Former smoker-quit 35 years ago, patient quit drinking alcohol 35 years ago Substance Use Type does not use-never used Meds Home Medications and Allergies Home Medications Medication Instructions Recorded Confirmed Type aspirin 81 mg PO DAILY 04/24/20 04/24/20 History atorvastatin 10 mg PO BEDTIME 04/24/20 04/24/20 History ferrous sulfate 325 mg PO DAILY 04/24/20 04/24/20 History glipizide 10 mg PO BID 04/24/20 04/24/20 History metformin 1,000 mg PO BID 04/24/20 04/24/20 History omeprazole 20 mg PO DAILY 04/24/20 04/24/20 History Allergies Allergy/AdvReac Type Severity Reaction Status Date / Time No Known Drug Allergies Allergy Verified 04/24/20 22:02 Review of Systems Review of Systems ROS: Yes All systems reviewed with the patient and are negative except as otherwise documented Exam Vital Signs (past 8 hours): - 08/12/20 16:05 08/12/20 18:27 08/12/20 18:29 Temperature 97.7 F Pulse Rate 110 H 99 H 89 Respiratory Rate 18 24 15 Blood Pressure 196/93 H Pulse Oximetry 99 95 98 08/12/20 18:30 08/12/20 19:00 Temperature Pulse Rate 89 87 Respiratory Rate 17 15 Blood Pressure 184/86 H Pulse Oximetry 98 98 Oxygen Delivery Method Room Air Narrative Exam Narrative: General: Patient is a well-developed, well-nourished in no distress at this time. HEENT: Normocephalic, atraumatic, extraocular muscles intact, oral pharynx is clear and mucous membranes are moist. Neck is supple and symmetric, trachea is midline, no adenopathy, no thyroid enlargement, nontender, no masses palpated. Negative for JVD Chest: Normal AP diameter and contour without kyphoscoliosis, no nasal flaring, retractions, or tachypneic labored Lungs: Auscultation of all lung patel are clear without adventitious sounds, wheezes, rhonchi, or rales. Cardio: S1 & S2 with regular rate and rhythm without murmur, rubs, or gallops, no carotid bruit, no cardiac pulsations present. Abdomen: Soft nontender, negative for organomegaly, or masses. Bowel sounds are present in all 4 quadrants without guarding or rebound, no CVA tenderness. Musculoskeletal: Muscle strength and tone are equal within normal limits, no deformity, crepitus, effusions, cyanosis, clubbing or edema present. Full range of motion intact radial and pedal pulses are normal. Skin: Warm dry and intact without rashes, ulcerations or petechiae. Neuro: Alert and orientated x3, strength is +5/5 in all extremities, sensation to touch intact, no gross deficits noted of cranial nerves. Psych: Patient has a well-kept appearance, appropriate affect, mental status attitude thought context and judgment are appropriate for age. Objective Labs Result Diagrams: 08/12/20 17:10 08/12/20 17:10 Labs: Laboratory Results - last 24 hr 08/12/20 08/12/20 08/12/20 17:10 17:10 17:10 WBC 6.5 RBC 4.30 L Hgb 13.2 L Hct 38.8 L MCV 90.3 MCH 30.7 MCHC 34.0 RDW 13.1 Plt Count 225 Neut % (Auto) 81.8 H Lymph % (Auto) 11.1 L Mcminn % (Auto) 5.6 Eos % (Auto) 1.0 L Baso % (Auto) 0.5 Neut # (Auto) 5400 Lymph # (Auto) 700 L Mcminn # (Auto) 400 Eos # (Auto) 100 Baso # (Auto) 0 PT 11.8 INR 1.1 APTT 32 Sodium 138 Potassium 4.7 Chloride 101 Carbon Dioxide 28 BUN 22 H Creatinine 1.20 Estimated GFR 59.2 L BUN/Creatinine Ratio 18.3 Glucose 204 H Calcium 9.7 Total Bilirubin 0.2 AST 23 ALT 20 Alkaline Phosphatase 84 Total Protein 7.4 Albumin 4.4 Globulin 3.0 Albumin/Globulin Ratio 1.5 Lipase 285 U Opiates 300ng/mL cut Ur Oxycodone Screen Urine Methadone Screen Ur Barbiturates Screen U Tricyclic Antidepress Ur Phencyclidine Scrn Ur Amphetamines Screen U Methamphetamines Scrn Ur MDMA Scrn (Ecstasy) U Benzodiazepines Scrn Urine Cocaine Screen U Marijuana (THC) Screen Ethyl Alcohol < 10 SARS-CoV-2 (PCR) 08/12/20 08/12/20 17:30 17:45 WBC RBC Hgb Hct MCV MCH MCHC RDW Plt Count Neut % (Auto) Lymph % (Auto) Mcminn % (Auto) Eos % (Auto) Baso % (Auto) Neut # (Auto) Lymph # (Auto) Mcminn # (Auto) Eos # (Auto) Baso # (Auto) PT INR APTT Sodium Potassium Chloride Carbon Dioxide BUN Creatinine Estimated GFR BUN/Creatinine Ratio Glucose Calcium Total Bilirubin AST ALT Alkaline Phosphatase Total Protein Albumin Globulin Albumin/Globulin Ratio Lipase U Opiates 300ng/mL cut Negative Ur Oxycodone Screen Negative Urine Methadone Screen Negative Ur Barbiturates Screen Negative U Tricyclic Antidepress Negative Ur Phencyclidine Scrn Negative Ur Amphetamines Screen Negative U Methamphetamines Scrn Negative Ur MDMA Scrn (Ecstasy) Negative U Benzodiazepines Scrn Negative Urine Cocaine Screen Negative U Marijuana (THC) Screen Negative Ethyl Alcohol SARS-CoV-2 (PCR) Negative Assessment & Plan Assessment & Plan narrative: This patient requires acute care inpatient hospital management for. After failing outpatient management of. The patient is at much higher risk for medical and surgical complications because of. These factors increase the difficulty and complexity of medical and surgical interventions and increases the chances of poor outcomes such as morbidity and mortality, as well as complications such as. The patient's will impact his or her oxygenation, which will likely contribute to. 1.Neuro-Deficit (Right-sided facial droop with slurred speech) rule out possible TIA, acute, guarded, not present on admission in the setting of hyperlipidemia, acute on chronic, not present on admission -differential diagnosis TIA, stroke symptoms lasting greater than 24 hours, ischemic stroke, intracranial hemorrhage, subdural hematoma, epidural hematoma, seizure, brain tumor, migraine, vertigo, hypoglycemia, [facility] syndrome, multiple sclerosis, aortic dissection vital signs upon admit temp 97.7?, BP 184/86, RR 15, O2 saturation 98% on room air. Labs: HGB 13.2, HCT 38.8, BUN 22, glucose 204, EGFR 59.2. Lipase within normal limits. Head CT:Atrophy and chronic ischemic changes without acute hemorrhage or mass effect. No CT evidence of large territory acute infarct. EKG: I personally reviewed normal sinus rhythm with a rate of [address] or T-wave changes compared to previous EKG which I also reviewed. NIHSS Score:0 -Vital signs q.4 hours, neuro checks q.2 hours for 1st 24 hours or until B/P <180/90 then q.4 hours, notify provider for temp greater than 38 C, , heart rate >100 -treat systolic blood pressure>220 or diastolic blood pressure> 120 -activity bed rest until initial physical therapy assessment is performed, then mobilize ABBEY as guided by Physical therapy, strict fall precautions. -supplemental O2 to maintain> 94%, check capillary blood glucose q.6 hours. -Diet NPO until swallow evaluation is done, then heart healthy if cleared -fluids:0 -Medications: Aspirin 81 mg p.o. q.day within 48 hours, Plavix 75 mg daily, patient's atorvastatin creased to 80 mg. -labs CBC with platelets, PT/PTT/INR, CMP, TSH, troponins, glucose, hemoglobin A1c, ESR/CRP, toxicology screen,Lipid panel -Echo & Stroke MR ordered for tomorrow. 2. Non-insulin dependent type 2 diabetes, acute on chronic, present on admission as evidence by a glucose of 204 -will hold patient's glipizide and metformin, patient to go on low-dose insulin sliding scale for blood sugar control, A1c ordered. Patient to be monitor for hypo and hyperglycemia per diabetes protocol. 3. History of lung cancer April 2020 right lower lobe, not present on admission -patient to continue with oncology follow-up. Code status: Full code Surrogate decision maker: Esther Carlisle () COVID PCR: Negative DVT/VTE prophylaxis: Plavix 75 mg and SCDs Scores GCS Spencer coma scale eye opening: Spontaneous [place] coma scale verbal response: Orientated [place] coma scale motor response: Obey commands [place] coma scale total score: 15 NIHSS Level of Conciousness: Alert, keenly responsive Ask month/age: Answers both questions correctly. Open/close eyes, close hand: Performs both tasks correctly Best gaze horizontal: Normal Visual patel: No visual loss Facial palsy: Normal symetrical movement Left arm drift: No drift for full 10 sec Right arm drift: No drift for full 10 sec Left leg drift: No drift for full 5 sec Right leg drift: No drift for full 5 sec Limb ataxia: Absent Sensory on face/arms/legs: Normal, no sensory loss Best language: No aphasia, normal Dysarthria: Normal Extinction or inattention: No abnormality Total NIH Stroke scale score: 0 CHADS-VASc Congestive heart failure: no Hypertension: no Age 75 years or older: no Diabetes mellitus: yes Stroke, TIA, or TE: yes Vascular disease: no Age 65 to 74 years: yes Sex category (female): Male CHADS-VASc Score: 4 Wells' Criteria for PE Clinical signs and symptoms of DVT: No PE is #1 Dx or equally likely: No Heart rate > 100: No Immobilization at least 3 days or surg in previous 4 weeks: No History of PE or DVT: No Hemoptysis: No Malignancy w/Treatment within 6 months or palliative: No Wells' PE Score total: 0 Quality Stroke Contraindication Not Initiating IV-Tpa: Not indicated VTE Deep Vein Thrombosis/Pulmonary Embolism Present on Admission: No MIPS - Admit I confirm the patient?s Advance Care Plan is present, Code status is documented, Surrogate decision maker is in patient?s record [If Yes, STOP here]: Yes
--- NOTE | 2020-08-12 21:33 | PC.NURSE ---
Pt to room 208 from E.R. via wheelchair. JUVENTINO Oliver in to see patient.
[2020-08-12 21:51] LABS: Magnesium 1.4 mg/dL (1.6-2.3)
[2020-08-12 22:03] LABS: Troponin I < 0.012 ng/mL (0.01-0.034)
[2020-08-12 22:05] LABS: Hemoglobin A1C% w Est Avg Glu 7.5 % (4.0-6.0)
[2020-08-12 22:23] LABS: Thyroid Stimulating Hormone 2.29 uIU/mL (0.47-4.68)
[2020-08-12] MEDS: SENNOSIDES 8.6 MG TABLET 17.2 MG PO (22:26)
[2020-08-12] MEDS: DOCUSATE 100 MG CAPSULE PO (22:26)
[2020-08-12] MEDS: ATORVASTATIN 20 MG TABLET 80 MG PO (22:27)
--- NOTE | 2020-08-12 22:59 | PC.NURSE ---
Patient has a ring and watch with him in the room that was not documented in admission assessment.
[2020-08-13] VITALS (8 sets, daily range): BP systolic 110–148; BP diastolic 64–82; PULSE 88–109; RESP 18–20; TEMP 35.8–37; O2SAT 96–98
[2020-08-13] MEDS: PANTOPRAZOLE DR 20 MG TABLET PO (05:31)
[2020-08-13 06:07] LABS: Add Manual Diff / Slide Review NO; Basophils Absolute Auto 0 /uL (0-100); Basophils Percent Auto 0.5 % (0-2); Eosinophils Absolute Auto 100 /uL (0-450); Hematocrit 36.4 % (41-53); Hemoglobin 12.5 g/dL (13.5-17.5); Lymphocytes Absolute Auto 1000 /uL (1100-4500); Lymphocytes Percent Auto 19.5 % (25-40); Mean Corpuscular HGB Conc 34.2 % (30-36); Mean Corpuscular Hemoglobin 30.8 PG (26-34); Mean Corpuscular Volume 89.8 fL (80-100); Monocytes Absolute Auto 400 /uL (0-900); Monocytes Percent Auto 8.8 % (3-14); Neutrophils Absolute Auto 3300 /uL (1500-7000); Neutrophils Percent Auto 68.2 % (50-75); Platelet Count 224 X10^3/uL (150-400); Red Blood Cell Count 4.06 X10^6/uL (4.5-5.9); Red Cell Distribution Width 13.1 % (11.6-14.8); White Blood Cell Count 4.9 X10^3/uL (4.5-11.0)
[2020-08-13 06:09] LABS: INR 1.1 (0.9-1.3); Prothrombin Time 12.5 SECONDS (10.1-12.7)
[2020-08-13 06:16] LABS: BUN Creatinine Ratio 20.9 (6-22); Blood Urea Nitrogen 23 mg/dL (9-20); Calcium 9.2 mg/dL (8.4-10.2); Carbon Dioxide 27 mmol/L (22-32); Chloride 102 mmol/L (98-107); Cholesterol 113 mg/dL (140-199); Estimated Glomerular Filt Rate > 60.0 mL/min (>60); Glucose 128 mg/dL (80-110); HDL Cholesterol 26 mg/dL (40-60); HEMOLYSIS < 15 (0-50); LDL Cholesterol Calculated 56 mg/dL (<100); Phosphorous 4.1 mg/dL (2.3-3.7); Potassium 3.9 mmol/L (3.4-5.1); Sodium 137 mmol/L (137-145); Triglycerides 153 mg/dL (35-150)
[2020-08-13 06:23] LABS: NT-proBNP (BNP-Adult 18+) 292 pg/mL (<125)
[2020-08-13] MEDS: SODIUM CHLORIDE 0.9% FLUSH 10 ML IV ×2 (06:54→21:09)
[2020-08-13] MEDS: SODIUM CHLORIDE 0.9% 250 ML 21 ML IV (06:54)
[2020-08-13] MEDS: MAGNESIUM SULFATE 2 GM/50 ML PIGGYBACK IV (06:54)
[2020-08-13] MEDS: TAMSULOSIN 0.4 MG CAPSULE PO (09:20)
[2020-08-13] MEDS: CLOPIDOGREL 75 MG TABLET PO (09:20)
[2020-08-13] MEDS: DOCUSATE 100 MG CAPSULE PO (09:20)
[2020-08-13] MEDS: ASPIRIN EC 81 MG TABLET PO (09:20)
[2020-08-13] MEDS: INSULIN LISPRO 100 UNIT/ML 3ML VIAL SUBCUT ×3 (09:23→18:00)
--- NOTE | 2020-08-13 10:17 | PM.PN.1 ---
Subjective Subjective Date Patient Seen: 08/13/20 Time Patient Seen: 11:13 Exam Vital Signs (past 8 hours): - 08/13/20 04:30 08/13/20 04:50 08/13/20 09:28 Temperature 97.2 F L 98.6 F Pulse Rate 88 94 H Respiratory Rate 18 18 Blood Pressure 139/70 140/71 Pulse Oximetry 97 97 97 Oxygen Delivery Method Room Air Oxygen Flow Rate 0 Objective Labs Result Diagrams: 08/13/20 05:23 08/13/20 05:23 Labs: Laboratory Results - last 24 hr 08/12/20 08/12/20 08/12/20 17:10 17:10 17:10 WBC 6.5 RBC 4.30 L Hgb 13.2 L Hct 38.8 L MCV 90.3 MCH 30.7 MCHC 34.0 RDW 13.1 Plt Count 225 Neut % (Auto) 81.8 H Lymph % (Auto) 11.1 L [place] % (Auto) 5.6 Eos % (Auto) 1.0 L Baso % (Auto) 0.5 Neut # (Auto) 5400 Lymph # (Auto) 700 L [place] # (Auto) 400 Eos # (Auto) 100 Baso # (Auto) 0 PT 11.8 INR 1.1 APTT 32 Sodium 138 Potassium 4.7 Chloride 101 Carbon Dioxide 28 BUN 22 H Creatinine 1.20 Estimated GFR 59.2 L BUN/Creatinine Ratio 18.3 Glucose 204 H Hemoglobin A1c Calcium 9.7 Phosphorus Magnesium Total Bilirubin 0.2 AST 23 ALT 20 Alkaline Phosphatase 84 Troponin I NT-Pro-B Natriuret Pep Total Protein 7.4 Albumin 4.4 Globulin 3.0 Albumin/Globulin Ratio 1.5 Triglycerides Cholesterol LDL Cholesterol, Calc HDL Cholesterol Lipase 285 TSH U Opiates 300ng/mL cut Ur Oxycodone Screen Urine Methadone Screen Ur Barbiturates Screen U Tricyclic Antidepress Ur Phencyclidine Scrn Ur Amphetamines Screen U Methamphetamines Scrn Ur MDMA Scrn (Ecstasy) U Benzodiazepines Scrn Urine Cocaine Screen U Marijuana (THC) Screen Ethyl Alcohol < 10 SARS-CoV-2 (PCR) 08/12/20 08/12/20 08/12/20 17:10 17:10 17:10 WBC RBC Hgb Hct MCV MCH MCHC RDW Plt Count Neut % (Auto) Lymph % (Auto) [place] % (Auto) Eos % (Auto) Baso % (Auto) Neut # (Auto) Lymph # (Auto) [place] # (Auto) Eos # (Auto) Baso # (Auto) PT INR APTT Sodium Potassium Chloride Carbon Dioxide BUN Creatinine Estimated GFR BUN/Creatinine Ratio Glucose Hemoglobin A1c 7.5 H Calcium Phosphorus Magnesium Total Bilirubin AST ALT Alkaline Phosphatase Troponin I < 0.012 NT-Pro-B Natriuret Pep Total Protein Albumin Globulin Albumin/Globulin Ratio Triglycerides Cholesterol LDL Cholesterol, Calc HDL Cholesterol Lipase TSH 2.29 U Opiates 300ng/mL cut Ur Oxycodone Screen Urine Methadone Screen Ur Barbiturates Screen U Tricyclic Antidepress Ur Phencyclidine Scrn Ur Amphetamines Screen U Methamphetamines Scrn Ur MDMA Scrn (Ecstasy) U Benzodiazepines Scrn Urine Cocaine Screen U Marijuana (THC) Screen Ethyl Alcohol SARS-CoV-2 (PCR) 08/12/20 08/12/20 08/12/20 17:10 17:30 17:45 WBC RBC Hgb Hct MCV MCH MCHC RDW Plt Count Neut % (Auto) Lymph % (Auto) [place] % (Auto) Eos % (Auto) Baso % (Auto) Neut # (Auto) Lymph # (Auto) [place] # (Auto) Eos # (Auto) Baso # (Auto) PT INR APTT Sodium Potassium Chloride Carbon Dioxide BUN Creatinine Estimated GFR BUN/Creatinine Ratio Glucose Hemoglobin A1c Calcium Phosphorus Magnesium 1.4 L Total Bilirubin AST ALT Alkaline Phosphatase Troponin I NT-Pro-B Natriuret Pep Total Protein Albumin Globulin Albumin/Globulin Ratio Triglycerides Cholesterol LDL Cholesterol, Calc HDL Cholesterol Lipase TSH U Opiates 300ng/mL cut Negative Ur Oxycodone Screen Negative Urine Methadone Screen Negative Ur Barbiturates Screen Negative U Tricyclic Antidepress Negative Ur Phencyclidine Scrn Negative Ur Amphetamines Screen Negative U Methamphetamines Scrn Negative Ur MDMA Scrn (Ecstasy) Negative U Benzodiazepines Scrn Negative Urine Cocaine Screen Negative U Marijuana (THC) Screen Negative Ethyl Alcohol SARS-CoV-2 (PCR) Negative 08/13/20 08/13/20 08/13/20 05:23 05:23 05:23 WBC 4.9 RBC 4.06 L Hgb 12.5 L Hct 36.4 L MCV 89.8 MCH 30.8 MCHC 34.2 RDW 13.1 Plt Count 224 Neut % (Auto) 68.2 Lymph % (Auto) 19.5 L [place] % (Auto) 8.8 Eos % (Auto) 3.0 Baso % (Auto) 0.5 Neut # (Auto) 3300 Lymph # (Auto) 1000 L [place] # (Auto) 400 Eos # (Auto) 100 Baso # (Auto) 0 PT 12.5 INR 1.1 APTT Sodium 137 Potassium 3.9 Chloride 102 Carbon Dioxide 27 BUN 23 H Creatinine 1.10 Estimated GFR > 60.0 BUN/Creatinine Ratio 20.9 Glucose 128 H Hemoglobin A1c Calcium 9.2 Phosphorus 4.1 H Magnesium Total Bilirubin AST ALT Alkaline Phosphatase Troponin I NT-Pro-B Natriuret Pep 292 H Total Protein Albumin Globulin Albumin/Globulin Ratio Triglycerides 153 H Cholesterol 113 L LDL Cholesterol, Calc 56 HDL Cholesterol 26 L Lipase TSH U Opiates 300ng/mL cut Ur Oxycodone Screen Urine Methadone Screen Ur Barbiturates Screen U Tricyclic Antidepress Ur Phencyclidine Scrn Ur Amphetamines Screen U Methamphetamines Scrn Ur MDMA Scrn (Ecstasy) U Benzodiazepines Scrn Urine Cocaine Screen U Marijuana (THC) Screen Ethyl Alcohol SARS-CoV-2 (PCR) [facility] Medical History (Updated 08/12/20 @ 23:55 by CRUZITO Null-) BPH (benign prostatic hyperplasia) Diabetes History of agent [place] exposure History of gastrointestinal ulcer Hypertension Lung cancer, lower lobe Surgical History (Updated 08/12/20 @ 23:55 by CRUZITO Null-NANCY) History of lobectomy of lung Family History Father Stroke Daughter Spina bifida Sister Dementia Social History household members: spouse Smoking Status: Former smoker alcohol intake: former Assessment & Plan Assessment & Plan narrative: 1.Neuro-Deficit (Right-sided facial droop with slurred speech) rule out possible TIA, acute, guarded, not present on admission in the setting of hyperlipidemia, acute on chronic, not present on admission -differential diagnosis TIA, stroke symptoms lasting greater than 24 hours, ischemic stroke, intracranial hemorrhage, subdural hematoma, epidural hematoma, seizure, brain tumor, migraine, vertigo, hypoglycemia, Echo [place] syndrome, multiple sclerosis, aortic dissection vital signs upon admit temp 97.7?, BP 184/86, RR 15, O2 saturation 98% on room air. Labs: HGB 13.2, HCT 38.8, BUN 22, glucose 204, EGFR 59.2. Labs within normal limits. Head CT:Atrophy and chronic ischemic changes without acute hemorrhage or mass effect. No CT evidence of large territory acute infarct. EKG: I personally reviewed normal sinus rhythm with a rate of [address] or T-wave changes compared to previous EKG which I also reviewed. NIHSS Score:0 -Vital signs q.4 hours, neuro checks q.2 hours for 1st 24 hours or until B/P <180/90 then q.4 hours, notify provider for temp greater than 38 C, , heart rate >100 -treat systolic blood pressure>220 or diastolic blood pressure> 120 -activity bed rest until initial physical therapy assessment is performed, then mobilize ABBEY as guided by Physical therapy, strict fall precautions. -supplemental O2 to maintain> 94%, check capillary blood glucose q.6 hours. -Diet NPO until swallow evaluation is done, then heart healthy if cleared -fluids:0 -Medications: Aspirin 81 mg p.o. q.day within 48 hours, Plavix 75 mg daily, patient's atorvastatin creased to 80 mg. -labs CBC with platelets, PT/PTT/INR, CMP, TSH, troponins, glucose, hemoglobin A1c, ESR/CRP, toxicology screen,Lipid panel -Echo & Stroke MR ordered for tomorrow. 2. Non-insulin dependent type 2 diabetes, acute on chronic, present on admission as evidence by a glucose of 204 -will hold patient's glipizide and metformin, patient to go on low-dose insulin sliding scale for blood sugar control, A1c ordered. Patient to be monitor for hypo and hyperglycemia per diabetes protocol. 3. History of lung cancer April 2020 right lower lobe, not present on admission -patient to continue with oncology follow-up. 4. BPH, chronic, not present on admission Continue patient's Tamsulosin This patient requires acute care inpatient hospital management for neurological deficit ( right-sided facial droop slurred speech) rule out TIA. The patient is at much higher risk for medical and surgical complications because of his recent history of his recent right lower lobe lung cancer diagnosis with lobectomy, non insulin-dependent type 2 diabetes, exposure to Agent [place], and hyperlipidemia. These factors increase the difficulty and complexity of medical and surgical interventions and increases the chances of poor outcomes such as morbidity and mortality. Code status: Full code Surrogate decision maker: Esther Carlisle () COVID PCR: Negative DVT/VTE prophylaxis: Plavix 75 mg and SCDs Quality Stroke Contraindication Not Initiating IV-Tpa: Not indicated VTE Deep Vein Thrombosis/Pulmonary Embolism Present on Admission: No
--- NOTE | 2020-08-13 10:32 | CM.DANOTE ---
Addendum entered by Chula Hillman LPN 08/13/20 10:43: Met briefly with pt. ECHO equipment being set up with test. Will follow up prn. Original Note: Discharge Planning/Care Management DCP: assessment: case received, EMR reviewed. Discussed with Dr. Mireles in Team Rounds. Pt is a 75 year old male who admitted to care of hospitalist team last night. Payer: [facility] Medicare Dr. Mireles stated that he would review the MRI and did anticipate pt would d/c to home setting later today. Will check in with pt now. Advanced directive, confirm from FAMILY Start: 08/12/20 22:25 Freq: Q24H Status: Active Protocol: Document 08/12/20 22:25 KA (Rec: 08/12/20 22:25 KA [id number]) Advance Directive, confirm on record Time 22:25 Person contacted Pete Copy received No CM Discharge Assessment Start: 08/13/20 10:31 Freq: Status: Active Protocol: Document 08/13/20 10:31 ITV (Rec: 08/13/20 10:32 ITV [id number]) Discharge Planning Assessment Advance Directives? No History Provided By Medical Record Has Patient been admitted in last 30 No days? Prior Living Arrangements House Household Members spouse
--- NOTE | 2020-08-13 10:52 | PM.PN.1 ---
Subjective Subjective Date Patient Seen: 08/13/20 Interval history: His neurologic symptoms have not returned. He spent the day, after the echocardiogram, waiting patiently for the results. 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 He was discussed with Cardiology. He says that he takes losartan at home, 25 mg, and had previously been on a higher dose. This was not on his admission meds. Exam Vital Signs (past 8 hours): - 08/14/20 05:19 08/14/20 07:37 Temperature 97.5 F L 97.8 F Pulse Rate 81 80 Respiratory Rate 20 18 Blood Pressure 108/59 L 130/75 Pulse Oximetry 95 Oxygen Delivery Method Room Air Oxygen Flow Rate 0 Narrative Exam Narrative: Alert and orient x3, no apparent distress. Heart is regular rate and rhythm without murmur Lungs are clear to auscultation bilaterally Extremities no ankle edema Neurologic exam has no tremor, cranial nerves 2-12 test intact, motor function is 5/5 throughout, [id number] pointing is normal, balance and gait are normal. Objective Labs Result Diagrams: 08/14/20 05:10 08/14/20 05:10 Labs: Laboratory Results - last 24 hr 08/13/20 08/14/20 08/14/20 16:20 05:10 05:10 WBC 5.4 RBC 4.12 L Hgb 12.6 L Hct 37.1 L MCV 90.0 MCH 30.5 MCHC 33.9 RDW 13.3 Plt Count 218 Neut % (Auto) 65.8 Lymph % (Auto) 21.7 L [place] % (Auto) 9.5 Eos % (Auto) 2.6 Baso % (Auto) 0.4 Neut # (Auto) 3600 Lymph # (Auto) 1200 [place] # (Auto) 500 Eos # (Auto) 100 Baso # (Auto) 0 PT 12.7 INR 1.1 Sodium Potassium Chloride Carbon Dioxide BUN Creatinine Estimated GFR BUN/Creatinine Ratio Glucose Calcium Magnesium 1.9 NT-Pro-B Natriuret Pep 08/14/20 08/14/20 05:10 05:10 WBC RBC Hgb Hct MCV MCH MCHC RDW Plt Count Neut % (Auto) Lymph % (Auto) [place] % (Auto) Eos % (Auto) Baso % (Auto) Neut # (Auto) Lymph # (Auto) [place] # (Auto) Eos # (Auto) Baso # (Auto) PT INR Sodium 137 Potassium 4.5 Chloride 102 Carbon Dioxide 29 BUN 26 H Creatinine 1.23 Estimated GFR 57.5 L BUN/Creatinine Ratio 21.1 Glucose 164 H Calcium 9.4 Magnesium NT-Pro-B Natriuret Pep 177 H [facility] Medical History (Updated 08/12/20 @ 23:55 by Cathy Oliver [facility]-) BPH (benign prostatic hyperplasia) Diabetes History of agent [place] exposure History of gastrointestinal ulcer Hypertension Lung cancer, lower lobe Surgical History (Updated 08/12/20 @ 23:55 by EFFIE NullP-BC) History of lobectomy of lung Family History Father Stroke Daughter Spina bifida Sister Dementia Social History household members: spouse Smoking Status: Former smoker alcohol intake: former Assessment & Plan Assessment & Plan narrative: 1. Probable TIA -plan discharge when echocardiogram report is available, home if no significant abnormality on echocardiogram. -treat systolic blood pressure>220 or diastolic blood pressure> 120 -he is up and about, cleared by Physical therapy. -Aspirin 81 mg, Plavix 75 mg daily, patient's atorvastatin increased to 80 mg. -brain MRI and MRA is negative for carotid stenosis or acute brain lesion/infarct. -No reported arrythmia on telemetry 2. Non-insulin dependent type 2 diabetes, acute on chronic, present on admission as evidence by a glucose of 204 -held glipizide and metformin, resume on discharge home 3. History of lung cancer April 2020 right lower lobe, not present on admission -patient to continue with oncology follow-up. 4. BPH, chronic, not present on admit -Tamsulosin 5. Hypomagnesemia -Mg 1.4 on admission, treated with 2 gm IV. Code status: Full code Surrogate decision maker: Esther Carlisle () Quality Stroke Contraindication Not Initiating IV-Tpa: Not indicated VTE Deep Vein Thrombosis/Pulmonary Embolism Present on Admission: No
--- NOTE | 2020-08-13 11:14 | DI.RAD.S_ITS ---
PROCEDURE: XR CHEST 1V INDICATIONS: Pleural Effusion TECHNIQUE: One view of the chest was acquired. COMPARISON: Outside Film, CR, XR CHEST 2 VIEWS, 05/31/2020, 10:08. [facility], CR, XR CHEST 1V, 04/24/2020, 20:53. FINDINGS: Surgical changes and devices: Overlying EKG wires. Lungs and pleura: There is subtle left basilar opacities. No pneumothorax. No pleural effusion. Mediastinum: Mediastinal contours appear normal. Heart size is normal. Bones and chest wall: No suspicious bony lesions. Overlying soft tissues appear unremarkable. IMPRESSION: Left basilar patchy opacities which may be seen with pneumonia in the correct clinical setting. Recommend follow-up to resolution. Dictated by: Javier Yan D.O. on 08/13/2020 at 11:18 Approved by: Javier Yan D.O. on 08/13/2020 at 11:19
--- NOTE | 2020-08-13 11:49 | OT.IP.EVAL ---
Past Medical History (Last Updated 08/12/20 @ 23:55 by Cathy Oliver [facility]) BPH (benign prostatic hyperplasia) Diabetes History of agent [place] exposure History of gastrointestinal ulcer Hypertension Lung cancer, lower lobe Surgical History (Last Updated 08/12/20 @ 23:55 by Cathy Oliver [facility]) History of lobectomy of lung Occupational Therapy Inpatient Evaluation/Re-Eval M1 PT/OT-IP Prior Functional Status Start: 08/13/20 14:47 Freq: NEEDED Status: Active Protocol: Document 08/13/20 14:47 CGR (Rec: 08/13/20 14:57 CGR [id number]) Medical Review Prior Functional Status Medical History Reviewed Yes Communication Pt is an effective verbal communicator. Mobility and Gait Pt was IND in all functional mobility Activities of Daily Living and IADL's Pt was IND in all ADLs Social History Household Members spouse Living Arrangements House Number of Floors (Floors) One Floor Number of Stairs To Enter/Railing? 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 M2 OT-IP Current Condition Start: 08/13/20 14:47 Freq: Status: Active Protocol: Document 08/13/20 14:47 CGR (Rec: 08/13/20 14:57 CGR [id number]) Occupational Therapy Current Condition Current Condition Evaluation Date 08/13/20 Treatment Diagnosis R sided facial droop and slurred speech Diagnosis Onset Date 08/12/20 M3 OT- IP Subjective and Pain Start: 08/13/20 14:47 Freq: Status: Active Protocol: Document 08/13/20 14:47 CGR (Rec: 08/13/20 14:57 CGR [id number]) OT- Subjective Occupational Therapy Visit Type Type Initial Evaluation Visit Start Time 11:36 Visit Stop Time 11:49 Total Visit Minutes 13 OT Pain Assessment Pain When Pain Assessed At Rest Pain Present Pain Present Denied Pain M4 OT- IP ADL's Start: 08/13/20 14:47 Freq: Status: Active Protocol: Document 08/13/20 14:47 CGR (Rec: 08/13/20 14:57 CGR [id number]) OT VBC-[place] General Evaluation Self-Feeding Ability Independent OT ADL-Grooming General Evaluation Grooming Ability Independent OT ADL-Oral Care General Eval Oral Care Ability Independent OT ADL-Dressing General Eval Upper Body Dressing Ability Independent Lower Body Dressing Ability Independent Areas Needing Assistance Socks OT ADL-Toileting General Evaluation Toileting Ability Independent OT ADL-Bathing Comments OT Bathing Comments not performed M5 OT- IP IADL's Start: 08/13/20 14:47 Freq: Status: Active Protocol: Document 08/13/20 14:47 CGR (Rec: 08/13/20 14:57 R [id number]) OT-Instrumental Activities of Daily Living Deficits IADL Deficits Identified No Deficits Home Safety Awareness Awareness of Need for Assistance at Home Good Awareness Ability to Problem Solve Emergency Able to Problem Solve Situations Medication Management Medication Management No Deficits Identified Money Management Money Management No Deficits Identified Meal Preparation Meal Preparation No Deficits Identified Managed Care Provider Managed Care Provider No Deficits Identified Driving Driving Comments 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 OT- IP Functional Cognition Start: 08/13/20 14:47 Freq: Status: Active Protocol: Document 08/13/20 14:47 CGR (Rec: 08/13/20 14:57 R [id number]) Cognitive Factors Limiting Selfcare Function Cognitive Ability Level of Alertness Alert Patient Orientation Name,Age,Birthday,Month,Date, Year,Day of Week,Place, Situation Attention Span Ability Capable of Focused Attention, Capable of Sustained Attention OT- Vision and Hearing OT- Hearing Assessment OT- Hearing Assessment Hearing Impaired,Use of Hearing Aids OT- Vision Assessment Visual Acuity Glasses For Reading Visual Attentiveness WFL Occular Pursuits WFL Visual Convergence WFL M7 OT- IP Mobility and Balance Start: 08/13/20 14:47 Freq: Status: Active Protocol: Document 08/13/20 14:47 CGR (Rec: 08/13/20 14:57 R [id number]) OT- Bed Mobility Assessment Rolling Level of Assistance Independent Supine to Sit Supine to Sit Assist Independent Scooting Scooting to Edge of Bed Independent OT-Transfer Assessment Sit to and From Stand Sit to and from Stand Independent Transfers Transfer Ability Independent Technique Transfer Destination Bed,Chair,Toilet Transfer Technique Stand Step Pivot Devices Transfer Assistive Devices Gait Belt OT- Balance Assessment Sitting Balance and Reactions Static Sitting Balance Ability Normal Dynamic Sitting Balance Ability Normal M8 OT- IP Objective Assessments Start: 08/13/20 14:47 Freq: Status: Active Protocol: Document 08/13/20 14:47 CGR (Rec: 08/13/20 14:57 CGR [id number]) OT Gross Range of Motion Upper Extremity Range of Motion Assessment Within Functional Limits OT Strength Upper Extremity Strength Assessment Within Functional Limits OT- Coordination Assessment Upper Extremity Finger to Nose Test Within Functional Limits Finger Tapping Test Within Functional Limits M9 OT- IP Assessment and Plan Start: 08/13/20 14:47 Freq: Status: Active Protocol: Document 08/13/20 14:47 CGR (Rec: 08/13/20 14:57 CGR [id number]) OT Summary Assessment and Plan Potential Rehabilitation Potential Excellent Analytic Complexity at Evaluation Low Summary Progress Towards Goals Goals Met Assessment Summary Pt presents as a low complexity evalution s/p admit for R sided facial droop and slurred speech that appear to have returned to normal. No further OT needs. Frequency of Treatment Frequency Of Treatment Discharge Discharge Recommendations OT Discharge Recommendations Home Transportation Needs at Discharge Private Vehicle
--- NOTE | 2020-08-13 12:03 | ST.IPIE ---
Visit Care Team Role Provider Type David Corbett DO Emergency Provider Physician Referring Provider Specialty: Emergency Medicine Address: [address] [place] [address], [id number] Email: [email or web address] Jared Kilgore MD Admit Provider Physician Attending Provider Specialty: Hospitalist Address: [address] [place] [address], [phone] Fax: Email: [email or web address] Past Medical History (Last Updated 08/12/20 @ 23:55 by Cathy Oliver [facility]) BPH (benign prostatic hyperplasia) (Medical) Diabetes (Medical) History of agent [place] exposure (Medical) History of gastrointestinal ulcer (Medical) Hypertension (Medical) Lung cancer, lower lobe (Medical) ST IP Initial Evaluation Report [employer] SALES MANAGER Motor Speech Evaluation Start: 08/13/20 11:54 Freq: Status: Active Protocol: Document 08/13/20 11:54 MG (Rec: 08/13/20 12:03 MG [id number]) Motor Speech Evaluation Session Time Visit Start Time 10:50 Visit Stop Time 11:15 Total Visit Minutes 25 Visit Information Visit Number 1 Setting Setting Acute Care Patient History Source: [place] [employer] ([employer]OL[employer]). Patient History Pt is a 75-year-old male Yimi Harmon who presented to the ED following an episode of right facial drooping and slurred speech symptoms had resolved by the time the patient presented to the ED yesterday evening. Patient states that his 's observe the facial droop and slurred speech at approximately 2:00 p .m., the patient was unaware patient denies at the time any diaphoresis, chest pain, changes in vision, balance or coordination issues, any weakness in arms or legs, difficulty swallowing, shortness of, abdominal pain, nausea, vomiting, or falls. The patient stated that his facial droop and slurred speech resolved by approximately 3:30pm as observed by his and arrived at the ED from [place] at approximately 4:00 p .m. Patient denies any recent illness, injury, or trauma. Patient reports that April 24, 2020 he was admitted to the ED and was subsequently transferred to [facility] for meningitis herpetic encephalopathy and new onset right lower lobe lung cancer, at which time he underwent a right lower lobectomy. Patient's oncologist is Dr. Franco at [facility]. He states he has had no other episodes of facial droop or slurred speech prior. Patient has a history type 2 diabetes non-insulin dependent which the patient reports was from [place] during [place], Right lower lobe cancer with Lobectomy, and hyperlipidemia. Mental Status Mental Status Alert,Responsive,Cooperative Subjective Observations Subjective Pt was laying in bed post ECHO when HEAV[employer] EQUIPMENT SALES MANAGER entered the room. Pt was agreeable to ST entering and conducting an evaluation. Of note, no facial droop was noted and speech appeared 100% intelligible. Per nurse over phone conversation with ST, he ate 100% of his breakfast with no overt s/sx of aspiration. Oral Motor Lips Function WFL Tongue Function WFL Jaw Function WFL Soft Palate Function WFL Respiration/Phonation Phonation Quality WFL Function WFL Loudness WFL Conversation Quality WFL Duration WFL Function WFL Loudness WFL Diadochokinetic Rates P^ Quality WFL T^ Quality WFL K^ Quality WFL P^T^K^ Quality WFL Speech Intelligibility Awareness/Strategy Use Findings Details Motor Speech Function WFL Type of Impairment No impairment noted at this time. Assessment Details Assessment Pt demonstrated oral motor skills that are within functional limits at this time . Of note, pt does not have lower dentures as he lost them , but has an appointment coming up on the to get them replaced. Pt tolerated regular diet, thin liquids in swallow screening and is cleared for that diet. No cog or language concerns noted at this time by ST. Recommendations Treatment Recommended No Patient/Family Education Education Described results of evaluation,Patient Understanding
--- NOTE | 2020-08-13 12:14 | PC.NURSE ---
Patient is doing well this morning. He had his MRI and echocardiogram. NIH stroke scale 0. Patient may go home later after reads his MRI results.
--- NOTE | 2020-08-13 14:40 | PT.IIE ---
Surgical History (Last Updated 08/12/20 @ 23:55 by Cathy Oliver [facility]) History of lobectomy of lung Medical History (Last Updated 08/12/20 @ 23:55 by Cathy Oliver [facility]) BPH (benign prostatic hyperplasia) Diabetes History of agent [place] exposure History of gastrointestinal ulcer Hypertension Lung cancer, lower lobe Physical Therapy Inpatient Evaluation/Re-Eval M1 PT/OT-IP Prior Functional Status Start: 08/13/20 14:47 Freq: NEEDED Status: Active Protocol: Document 08/13/20 14:47 CGR (Rec: 08/13/20 14:57 CGR [id number]) Medical Review Prior Functional Status Medical History Reviewed Yes Communication Pt is an effective verbal communicator. Mobility and Gait Pt was IND in all functional mobility Activities of Daily Living and IADL's Pt was IND in all ADLs Social History Household Members spouse Living Arrangements House Number of Floors (Floors) One Floor Number of Stairs To Enter/Railing? 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 M2 PT-IP Current Condition Start: 08/13/20 15:55 Freq: NEEDED Status: Active Protocol: Document 08/13/20 14:40 AB (Rec: 08/13/20 16:10 AB [id number]) Physical Therapy Current Condition Current Condition Evaluation Date 08/13/20 Treatment Diagnosis TIA; difficulty in walking Onset Date 08/12/20 M3 PT-IP Subjective Start: 08/13/20 15:55 Freq: NEEDED Status: Active Protocol: Document 08/13/20 14:40 AB (Rec: 08/13/20 16:10 AB [id number]) Subjective Physical Therapy Visit Type Type Initial Evaluation Visit Start Time 14:40 Visit Stop Time 15:00 Total Visit Minutes 20 Number of [employer] YARD ATTENDANT Visits 0 Physical Therapy Visit Comments Patient Comments pt is agreeable to do PT Therapy Pain Assessment Pain Present Pain Present Denied Pain M4 PT-IP Mobility and Gait Start: 08/13/20 15:55 Freq: NEEDED Status: Active Protocol: Document 08/13/20 14:40 AB (Rec: 08/13/20 16:10 [id number]) PT-Bed Mobility Assessment Supine to Sit Supine to Sit Independent Sit to Supine Sit to Supine Independent Scooting Scooting to Edge of Bed Independent PT-Transfer Assessment Sit to and From Stand Sit to and from Stand Independent Equipment Transfer Assistive Device None Orthotic/Prosthetic Devices or Brace: No Transfers Transfer Destination Bed Transfer Technique ambulated without AD Transfer Ability Level of Assist Independent Gait Assessment Assistive Devices Assistive Device None,Gait Belt Orthotic/Prosthetic Devices or Brace: No Gait Deviations General Gait Pattern Wide Based Gait Stair Climbing Assessment Evaluation Level of Assist On Stairs Standby Assistance Devices Stair Climbing Assistive Devices None Technique/Endurance Stair Climbing Direction Ascend and Descend Stair Climbing Technique Step Over Step Number of Steps Climbed 3 Query Text: Stair Climbing Set # Repetitions (reps) 1 PT-Balance Assessment Sitting Balance and Reactions Static Sitting Balance Ability Normal Dynamic Sitting Balance Ability Normal Standing Balance and Reactions Static Standing Balance Ability Good Dynamic Standing Balance Ability Good Device Used without AD M5 PT-IP Objective Assessments Start: 08/13/20 15:55 Freq: NEEDED Status: Active Protocol: Document 08/13/20 14:40 AB (Rec: 08/13/20 16:10 [id number]) Orientation Orientation/Cognition Level of Alertness Alert Orientation Name,Age,Birthday,Month,Date, Year,Day of Week,Place, Situation Safety Awareness Understands Safety Issues Memory Description No Deficits Noted Gross Range of Motion Lower Extremity ROM Assessment Within Functional Limits Strength Lower Extremity Strength Assessment Within Functional Limits Coordination Assessment Gross Coordination Gross Coordination WNL Sensation Assessment Sensation Gross Sensation WNL Muscle Tone Muscle Tone WNL Yes M7 PT-IP Assessment and Plan Start: 08/13/20 15:55 Freq: NEEDED Status: Active Protocol: Document 08/13/20 14:40 AB (Rec: 08/13/20 16:10 [id number]) PT Summary Assessment and Plan Potential Rehabilitation Potential Good Status of Condition at Evaluation Stable Summary Assessment Summary PT eval completed and pt is independent with mobility without AD. pt stated that he feels he is at PLOF. pt has his spouse to assist him at home if needed. No further PT intervention indicated at this time. Frequency of Treatment Frequency Of Treatment Discharge Recommendations To Nursing Amount of Assist Needed Independent Discharge Recommendations PT Discharge Recommendations Home Transportation Needs at Discharge Private Vehicle
[2020-08-13 16:49] LABS: Magnesium 1.9 mg/dL (1.6-2.3)
--- NOTE | 2020-08-13 17:05 | P.DS_ITS ---
History of Present Illness History of Present Illness Chief complaint: meningitis, herpes, cancer, memory issues Narrative: Patient is a 75-year-old male Yimi Harmon who presented to the ED following an episode of right facial drooping and slurred speech symptoms had resolved by the time the patient presented to the ED this evening. Patient states that his 's observe the facial droop and slurred speech at approximately 2:00 p.m., the patient was unaware patient denies at the time any diaphoresis, chest pain, changes in vision, balance or coordination issues, any weakness in arms or legs, difficulty swallowing, shortness of, abdominal pain, nausea, vomiting, or falls. The patient stated that his facial droop and slurred speech resolved by approximately 330 as observed by his and arrived at the ED from [place] at approximately 4:00 p.m. Patient denies any recent illness, injury, or trauma. Patient reports that April 24, 2020 he was admitted to the ED and was subsequently transferred to [facility] for meningitis herpetic encephalopathy and new onset right lower lobe lung cancer, at which time he underwent a right lower lobectomy. Patient's oncologist is Dr. Franco at [facility]. He states he has had no other episodes of facial droop or slurred speech prior Patient has a history type 2 diabetes non-insulin dependent which the patient reports was from [employer] orange during , Right lower lobe Cancer with Lobectomy, and hyperlipidemia. Patient's vital signs upon admit temp 97.7?, BP 184/86, RR 15, O2 saturation 98% on room air. Labs: HGB 13.2, HCT 38.8, BUN 22, glucose 204, EGFR 59.2. Lipase within normal limits. Head CT:Atrophy and chronic ischemic changes without acute hemorrhage or mass effect. No CT evidence of large territory acute infarct. EKG: I personally reviewed normal sinus rhythm with a rate of [address] or T-wave changes compared to previous EKG which I also reviewed. NIHSS Score:0 Discharge Providers Provider Date of admission: 08/12/20 19:48 Consults: 08/12/20 19:28 Consult to Discharge Planning Routine Comment: Consult to Occupational Therapy Evaluate & Treat Comment: Physician Instructions: Evaluate and treat Consult to Physical Therapy Evaluate & Treat Comment: Physician Instructions: Evaluate and Treat Consult to Speech Therapy Evaluate & Treat Comment: Physician Instructions: Evaluate and treat Discharge provider: CRUZITO Null- Summary Hospital Course Discharge Diagnosis: 1. TIA 2. Non-insulin dependent type 2 diabetes 3. History of lung cancer April 2020 right lower lobe 4. BPH 5. Hypomagnesemia Hospital Course: 1. Probable TIA -patients echocardiogram . -treat systolic blood pressure>220 or diastolic blood pressure> 120 -he is up and about, cleared by Physical therapy. -Aspirin 81 mg, Plavix 75 mg daily, patient's atorvastatin increased to 80 mg. -brain MRI and MRA is negative for carotid stenosis or acute brain le rachel/infarct. -No reported arrythmia on telemetry 2. Non-insulin dependent type 2 diabetes, acute on chronic, present on admission as evidence by a glucose of 204 -held glipizide and metformin, resume on discharge home 3. History of lung cancer April 2020 right lower lobe, not present on admissi on -patient to continue with oncology follow-up. 4. BPH, chronic, not present on admit -Tamsulosin 5. Hypomagnesemia -Mg 1.4 on admission, treated with 2 gm IV. Code status: Full code Surrogate decision maker: Esther Carlisle () Exam Vital Signs (past 8 hours): - 08/13/20 09:28 08/13/20 12:50 08/13/20 15:41 Temperature 98.6 F 98.2 F 96.4 F L Pulse Rate 94 H 109 H 104 H Respiratory Rate 18 18 18 Blood Pressure 140/71 148/82 H 146/78 H Pulse Oximetry 97 98 97 Oxygen Delivery Method Room Air Oxygen Flow Rate 0 Objective Labs Result Diagrams: 08/13/20 05:23 08/13/20 05:23 Labs: Laboratory Results - last 24 hr 08/12/20 08/12/20 08/12/20 17:10 17:10 17:10 WBC 6.5 RBC 4.30 L Hgb 13.2 L Hct 38.8 L MCV 90.3 MCH 30.7 MCHC 34.0 RDW 13.1 Plt Count 225 Neut % (Auto) 81.8 H Lymph % (Auto) 11.1 L [place] % (Auto) 5.6 Eos % (Auto) 1.0 L Baso % (Auto) 0.5 Neut # (Auto) 5400 Lymph # (Auto) 700 L [place] # (Auto) 400 Eos # (Auto) 100 Baso # (Auto) 0 PT 11.8 INR 1.1 APTT 32 Sodium 138 Potassium 4.7 Chloride 101 Carbon Dioxide 28 BUN 22 H Creatinine 1.20 Estimated GFR 59.2 L BUN/Creatinine Ratio 18.3 Glucose 204 H Hemoglobin A1c Calcium 9.7 Phosphorus Magnesium Total Bilirubin 0.2 AST 23 ALT 20 Alkaline Phosphatase 84 Troponin I NT-Pro-B Natriuret Pep Total Protein 7.4 Albumin 4.4 Globulin 3.0 Albumin/Globulin Ratio 1.5 Triglycerides Cholesterol LDL Cholesterol, Calc HDL Cholesterol Lipase 285 TSH U Opiates 300ng/mL cut Ur Oxycodone Screen Urine Methadone Screen Ur Barbiturates Screen U Tricyclic Antidepress Ur Phencyclidine Scrn Ur Amphetamines Screen U Methamphetamines Scrn Ur MDMA Scrn (Ecstasy) U Benzodiazepines Scrn Urine Cocaine Screen U Marijuana (THC) Screen Ethyl Alcohol < 10 SARS-CoV-2 (PCR) 08/12/20 08/12/20 08/12/20 17:10 17:10 17:10 WBC RBC Hgb Hct MCV MCH MCHC RDW Plt Count Neut % (Auto) Lymph % (Auto) [place] % (Auto) Eos % (Auto) Baso % (Auto) Neut # (Auto) Lymph # (Auto) [place] # (Auto) Eos # (Auto) Baso # (Auto) PT INR APTT Sodium Potassium Chloride Carbon Dioxide BUN Creatinine Estimated GFR BUN/Creatinine Ratio Glucose Hemoglobin A1c 7.5 H Calcium Phosphorus Magnesium Total Bilirubin AST ALT Alkaline Phosphatase Troponin I < 0.012 NT-Pro-B Natriuret Pep Total Protein Albumin Globulin Albumin/Globulin Ratio Triglycerides Cholesterol LDL Cholesterol, Calc HDL Cholesterol Lipase TSH 2.29 U Opiates 300ng/mL cut Ur Oxycodone Screen Urine Methadone Screen Ur Barbiturates Screen U Tricyclic Antidepress Ur Phencyclidine Scrn Ur Amphetamines Screen U Methamphetamines Scrn Ur MDMA Scrn (Ecstasy) U Benzodiazepines Scrn Urine Cocaine Screen U Marijuana (THC) Screen Ethyl Alcohol SARS-CoV-2 (PCR) 08/12/20 08/12/20 08/12/20 17:10 17:30 17:45 WBC RBC Hgb Hct MCV MCH MCHC RDW Plt Count Neut % (Auto) Lymph % (Auto) [place] % (Auto) Eos % (Auto) Baso % (Auto) Neut # (Auto) Lymph # (Auto) [place] # (Auto) Eos # (Auto) Baso # (Auto) PT INR APTT Sodium Potassium Chloride Carbon Dioxide BUN Creatinine Estimated GFR BUN/Creatinine Ratio Glucose Hemoglobin A1c Calcium Phosphorus Magnesium 1.4 L Total Bilirubin AST ALT Alkaline Phosphatase Troponin I NT-Pro-B Natriuret Pep Total Protein Albumin Globulin Albumin/Globulin Ratio Triglycerides Cholesterol LDL Cholesterol, Calc HDL Cholesterol Lipase TSH U Opiates 300ng/mL cut Negative Ur Oxycodone Screen Negative Urine Methadone Screen Negative Ur Barbiturates Screen Negative U Tricyclic Antidepress Negative Ur Phencyclidine Scrn Negative Ur Amphetamines Screen Negative U Methamphetamines Scrn Negative Ur MDMA Scrn (Ecstasy) Negative U Benzodiazepines Scrn Negative Urine Cocaine Screen Negative U Marijuana (THC) Screen Negative Ethyl Alcohol SARS-CoV-2 (PCR) Negative 08/13/20 08/13/20 08/13/20 05:23 05:23 05:23 WBC 4.9 RBC 4.06 L Hgb 12.5 L Hct 36.4 L MCV 89.8 MCH 30.8 MCHC 34.2 RDW 13.1 Plt Count 224 Neut % (Auto) 68.2 Lymph % (Auto) 19.5 L [place] % (Auto) 8.8 Eos % (Auto) 3.0 Baso % (Auto) 0.5 Neut # (Auto) 3300 Lymph # (Auto) 1000 L [place] # (Auto) 400 Eos # (Auto) 100 Baso # (Auto) 0 PT 12.5 INR 1.1 APTT Sodium 137 Potassium 3.9 Chloride 102 Carbon Dioxide 27 BUN 23 H Creatinine 1.10 Estimated GFR > 60.0 BUN/Creatinine Ratio 20.9 Glucose 128 H Hemoglobin A1c Calcium 9.2 Phosphorus 4.1 H Magnesium Total Bilirubin AST ALT Alkaline Phosphatase Troponin I NT-Pro-B Natriuret Pep 292 H Total Protein Albumin Globulin Albumin/Globulin Ratio Triglycerides 153 H Cholesterol 113 L LDL Cholesterol, Calc 56 HDL Cholesterol 26 L Lipase TSH U Opiates 300ng/mL cut Ur Oxycodone Screen Urine Methadone Screen Ur Barbiturates Screen U Tricyclic Antidepress Ur Phencyclidine Scrn Ur Amphetamines Screen U Methamphetamines Scrn Ur MDMA Scrn (Ecstasy) U Benzodiazepines Scrn Urine Cocaine Screen U Marijuana (THC) Screen Ethyl Alcohol SARS-CoV-2 (PCR) 08/13/20 16:20 WBC RBC Hgb Hct MCV MCH MCHC RDW Plt Count Neut % (Auto) Lymph % (Auto) [place] % (Auto) Eos % (Auto) Baso % (Auto) Neut # (Auto) Lymph # (Auto) [place] # (Auto) Eos # (Auto) Baso # (Auto) PT INR APTT Sodium Potassium Chloride Carbon Dioxide BUN Creatinine Estimated GFR BUN/Creatinine Ratio Glucose Hemoglobin A1c Calcium Phosphorus Magnesium 1.9 Total Bilirubin AST ALT Alkaline Phosphatase Troponin I NT-Pro-B Natriuret Pep Total Protein Albumin Globulin Albumin/Globulin Ratio Triglycerides Cholesterol LDL Cholesterol, Calc HDL Cholesterol Lipase TSH U Opiates 300ng/mL cut Ur Oxycodone Screen Urine Methadone Screen Ur Barbiturates Screen U Tricyclic Antidepress Ur Phencyclidine Scrn Ur Amphetamines Screen U Methamphetamines Scrn Ur MDMA Scrn (Ecstasy) U Benzodiazepines Scrn Urine Cocaine Screen U Marijuana (THC) Screen Ethyl Alcohol SARS-CoV-2 (PCR) FOR[facility]LY [facility], [facility] Medical History (Updated 08/12/20 @ 23:55 by SAMY Null) BPH (benign prostatic hyperplasia) Diabetes History of agent [place] exposure History of gastrointestinal ulcer Hypertension Lung cancer, lower lobe Surgical History (Updated 08/12/20 @ 23:55 by SAMY Null) History of lobectomy of lung Family History Father Stroke Daughter Spina bifida Sister Dementia Social History household members: spouse Smoking Status: Former smoker alcohol intake: former Discharge Plan Discharge Plan Patient Disposition: Home Discharge orders & Medications Prescriptions: No Action tamsulosin 0.4 mg capsule 0.4 mg PO DAILY RF: 0 atorvastatin 10 mg Tablet 10 mg PO BEDTIME RF: 0 glipizide 10 mg Tablet 10 mg PO BID RF: 0 ferrous sulfate 325 mg (65 mg iron) Tablet 325 mg PO DAILY RF: 0 metformin 1,000 mg Tablet 1,000 mg PO BID RF: 0 omeprazole 20 mg Capsule,Delayed Release(Dr/Ec) 20 mg PO DAILY RF: 0 aspirin 81 mg Tablet 81 mg PO DAILY RF: 0 Discharge Data Attending Provider: Jared Kilgore Stroke Contraindication Not Initiating IV-Tpa: Not indicated VTE Deep Vein Thrombosis/Pulmonary Embolism Present on Admission: No
[2020-08-13] MEDS: LOSARTAN 50 MG TABLET PO (19:01)
[2020-08-13] MEDS: ATORVASTATIN 20 MG TABLET 80 MG PO (21:09)
[2020-08-14 01:50] VITALS: BP 107/62; PULSE 86; RESP 16; TEMP 36.4; O2SAT 98
[2020-08-14 02:02] VITALS: O2SAT 98
[2020-08-14] MEDS: PANTOPRAZOLE DR 20 MG TABLET PO (05:11)
[2020-08-14 05:19] VITALS: BP 108/59; PULSE 81; RESP 20; TEMP 36.4
[2020-08-14 05:42] LABS: Add Manual Diff / Slide Review NO; Basophils Absolute Auto 0 /uL (0-100); Basophils Percent Auto 0.4 % (0-2); Eosinophils Absolute Auto 100 /uL (0-450); Eosinophils Percent Auto 2.6 % (2-4); Hematocrit 37.1 % (41-53); Hemoglobin 12.6 g/dL (13.5-17.5); Lymphocytes Absolute Auto 1200 /uL (1100-4500); Lymphocytes Percent Auto 21.7 % (25-40); Mean Corpuscular HGB Conc 33.9 % (30-36); Mean Corpuscular Hemoglobin 30.5 PG (26-34); Monocytes Absolute Auto 500 /uL (0-900); Monocytes Percent Auto 9.5 % (3-14); Neutrophils Absolute Auto 3600 /uL (1500-7000); Neutrophils Percent Auto 65.8 % (50-75); Platelet Count 218 X10^3/uL (150-400); Red Blood Cell Count 4.12 X10^6/uL (4.5-5.9); Red Cell Distribution Width 13.3 % (11.6-14.8); White Blood Cell Count 5.4 X10^3/uL (4.5-11.0)
[2020-08-14 05:48] LABS: INR 1.1 (0.9-1.3); Prothrombin Time 12.7 SECONDS (10.1-12.7)
[2020-08-14 05:55] LABS: BUN Creatinine Ratio 21.1 (6-22); Blood Urea Nitrogen 26 mg/dL (9-20); Calcium 9.4 mg/dL (8.4-10.2); Carbon Dioxide 29 mmol/L (22-32); Chloride 102 mmol/L (98-107); Estimated Glomerular Filt Rate 57.5 mL/min (>60); Glucose 164 mg/dL (80-110); HEMOLYSIS < 15 (0-50); Potassium 4.5 mmol/L (3.4-5.1); Sodium 137 mmol/L (137-145)
[2020-08-14 06:03] LABS: NT-proBNP (BNP-Adult 18+) 177 pg/mL (<125)
[2020-08-14 07:37] VITALS: BP 130/75; PULSE 80; RESP 18; TEMP 36.6; O2SAT 95
[2020-08-14] MEDS: DOCUSATE 100 MG CAPSULE PO (08:04)
[2020-08-14] MEDS: LOSARTAN 50 MG TABLET PO (08:04)
[2020-08-14] MEDS: TAMSULOSIN 0.4 MG CAPSULE PO (08:05)
[2020-08-14] MEDS: CLOPIDOGREL 75 MG TABLET PO (08:05)
[2020-08-14] MEDS: ASPIRIN EC 81 MG TABLET PO (08:08)
[2020-08-14] MEDS: INSULIN LISPRO 100 UNIT/ML 3ML VIAL SUBCUT (08:08)
--- NOTE | 2020-08-14 09:05 | CM.DPC ---
DCP: continued: d/c to home order noted this morning. Checked in with pt who is aware of this and has called his who will pick him up this morning. He confirms that he will be following with his PCP JUVENTINO Marin at the [facility] and that the doctor is changing some of my medication. MALLIKA Howard is updated.
--- NOTE | 2020-08-14 09:14 | PC.NURSE ---
Assess- Patient denies pain or discomfort. He is independent in room and is going to be discharged today. Denies any sob or issues with heart palpitations. He is resting and talking on the phone. All medication given today and he ate 100% at breakfast and drank 200cc of coffee
--- NOTE | 2020-08-14 14:43 | PM.DS.1 ---
History of Present Illness History of Present Illness Date Patient Seen: 08/14/20 Time Patient Seen: 10:53 Chief complaint: meningitis, herpes, cancer, memory issues Narrative: Patient is a 75-year-old male Yimi Harmon who presented to the ED following an episode of right facial drooping and slurred speech symptoms had resolved by the time the patient presented to the ED this evening. Patient states that his 's observe the facial droop and slurred speech at approximately 2:00 p.m., the patient was unaware patient denies at the time any diaphoresis, chest pain, changes in vision, balance or coordination issues, any weakness in arms or legs, difficulty swallowing, shortness of, abdominal pain, nausea, vomiting, or falls. The patient stated that his facial droop and slurred speech resolved by approximately 330 as observed by his and arrived at the ED from [place] at approximately 4:00 p.m. Patient denies any recent illness, injury, or trauma. Patient reports that April 24, 2020 he was admitted to the ED and was subsequently transferred to [facility] for meningitis herpetic encephalopathy and new onset right lower lobe lung cancer, at which time he underwent a right lower lobectomy. Patient's oncologist is Dr. Oneil at [facility]. He states he has had no other episodes of facial droop or slurred speech prior Patient has a history type 2 diabetes non-insulin dependent which the patient reports was from Agent orange during , Right lower lobe Cancer with Lobectomy, and hyperlipidemia. Discharge Providers Provider Date of admission: 08/12/20 19:48 Discharge Date: 08/14/20 Consults: 08/12/20 19:28 Consult to Discharge Planning Routine Comment: Consult to Occupational Therapy Evaluate & Treat Comment: Physician Instructions: Evaluate and treat Consult to Physical Therapy Evaluate & Treat Comment: Physician Instructions: Evaluate and Treat Consult to Speech Therapy Evaluate & Treat Comment: Physician Instructions: Evaluate and treat Discharge provider: Mike Mireles MD Summary Hospital Course Discharge Diagnosis: 1. TIA 2. Non-insulin dependent type 2 diabetes 3. History of lung cancer April 2020 right lower lobe 4. BPH 5. Hypomagnesemia 6. Cardiomyopathy Hospital Course: 1. Possible TIA -he had no recurrence of symptoms while observed on telemetry in the hospital. -he is up and about, cleared by Physical therapy. -he was treated with aspirin and Plavix along with higher dose of atorvastatin while in the hospital. -brain MRI and MRA is negative for carotid stenosis or acute brain lesion/infarct. -No reported arrythmia on telemetry, no signs of atrial fibrillation/vegetation or other PFO problem on his echocardiogram. 2. Non-insulin dependent type 2 diabetes, acute on chronic, present on admission as evidence by a glucose of 204 -held glipizide and metformin, resumed on discharge home 3. History of lung cancer April 2020 right lower lobe, not present on admission -patient to continue with oncology follow-up. 4. BPH, chronic, not present on admit -Tamsulosin 5. Hypomagnesemia -Mg 1.4 on admission, treated with 2 gm IV. Final level 1.9. 6. Cardiomyopathy - Echo: Mild global hypokinesis. Ejection fraction is estimated at 35-40%. - Resumed on Losartan - f/u with PCP and consider referral to Cardiology - Dr. Del Castillo Code status: Full code Surrogate decision maker: Esther Carlisle () Exam Vital Signs (past 8 hours): - 08/13/20 04:30 08/13/20 04:50 08/13/20 09:28 Temperature 97.2 F L 98.6 F Pulse Rate 88 94 H Respiratory Rate 18 18 Blood Pressure 139/70 140/71 Pulse Oximetry 97 97 97 Oxygen Delivery Method Room Air Oxygen Flow Rate 0 Narrative Exam Narrative: He is alert and oriented x3 and in no apparent distress. Heart is regular rate and rhythm without murmur Lungs are clear to auscultation bilaterally Extremities have no ankle edema Neurological exam. Cranial nerves 2-12 test intact. [id number] pointing is accurate There is no tremor Motor function is 5/5 in all extremities. There is no facial droop or tongue deviation Balance appears to be intact and gait is appropriate for age. Objective Labs Result Diagrams: 08/14/20 05:10 08/14/20 05:10 Labs: Laboratory Results - last 24 hr 08/12/20 08/12/20 08/12/20 17:10 17:10 17:10 WBC 6.5 RBC 4.30 L Hgb 13.2 L Hct 38.8 L MCV 90.3 MCH 30.7 MCHC 34.0 RDW 13.1 Plt Count 225 Neut % (Auto) 81.8 H Lymph % (Auto) 11.1 L [place] % (Auto) 5.6 Eos % (Auto) 1.0 L Baso % (Auto) 0.5 Neut # (Auto) 5400 Lymph # (Auto) 700 L [place] # (Auto) 400 Eos # (Auto) 100 Baso # (Auto) 0 PT 11.8 INR 1.1 APTT 32 Sodium 138 Potassium 4.7 Chloride 101 Carbon Dioxide 28 BUN 22 H Creatinine 1.20 Estimated GFR 59.2 L BUN/Creatinine Ratio 18.3 Glucose 204 H Hemoglobin A1c Calcium 9.7 Phosphorus Magnesium Total Bilirubin 0.2 AST 23 ALT 20 Alkaline Phosphatase 84 Troponin I NT-Pro-B Natriuret Pep Total Protein 7.4 Albumin 4.4 Globulin 3.0 Albumin/Globulin Ratio 1.5 Triglycerides Cholesterol LDL Cholesterol, Calc HDL Cholesterol Lipase 285 TSH U Opiates 300ng/mL cut Ur Oxycodone Screen Urine Methadone Screen Ur Barbiturates Screen U Tricyclic Antidepress Ur Phencyclidine Scrn Ur Amphetamines Screen U Methamphetamines Scrn Ur MDMA Scrn (Ecstasy) U Benzodiazepines Scrn Urine Cocaine Screen U Marijuana (THC) Screen Ethyl Alcohol < 10 SARS-CoV-2 (PCR) 08/12/20 08/12/20 08/12/20 17:10 17:10 17:10 WBC RBC Hgb Hct MCV MCH MCHC RDW Plt Count Neut % (Auto) Lymph % (Auto) [place] % (Auto) Eos % (Auto) Baso % (Auto) Neut # (Auto) Lymph # (Auto) [place] # (Auto) Eos # (Auto) Baso # (Auto) PT INR APTT Sodium Potassium Chloride Carbon Dioxide BUN Creatinine Estimated GFR BUN/Creatinine Ratio Glucose Hemoglobin A1c 7.5 H Calcium Phosphorus Magnesium Total Bilirubin AST ALT Alkaline Phosphatase Troponin I < 0.012 NT-Pro-B Natriuret Pep Total Protein Albumin Globulin Albumin/Globulin Ratio Triglycerides Cholesterol LDL Cholesterol, Calc HDL Cholesterol Lipase TSH 2.29 U Opiates 300ng/mL cut Ur Oxycodone Screen Urine Methadone Screen Ur Barbiturates Screen U Tricyclic Antidepress Ur Phencyclidine Scrn Ur Amphetamines Screen U Methamphetamines Scrn Ur MDMA Scrn (Ecstasy) U Benzodiazepines Scrn Urine Cocaine Screen U Marijuana (THC) Screen Ethyl Alcohol SARS-CoV-2 (PCR) 08/12/20 08/12/20 08/12/20 17:10 17:30 17:45 WBC RBC Hgb Hct MCV MCH MCHC RDW Plt Count Neut % (Auto) Lymph % (Auto) [place] % (Auto) Eos % (Auto) Baso % (Auto) Neut # (Auto) Lymph # (Auto) [place] # (Auto) Eos # (Auto) Baso # (Auto) PT INR APTT Sodium Potassium Chloride Carbon Dioxide BUN Creatinine Estimated GFR BUN/Creatinine Ratio Glucose Hemoglobin A1c Calcium Phosphorus Magnesium 1.4 L Total Bilirubin AST ALT Alkaline Phosphatase Troponin I NT-Pro-B Natriuret Pep Total Protein Albumin Globulin Albumin/Globulin Ratio Triglycerides Cholesterol LDL Cholesterol, Calc HDL Cholesterol Lipase TSH U Opiates 300ng/mL cut Negative Ur Oxycodone Screen Negative Urine Methadone Screen Negative Ur Barbiturates Screen Negative U Tricyclic Antidepress Negative Ur Phencyclidine Scrn Negative Ur Amphetamines Screen Negative U Methamphetamines Scrn Negative Ur MDMA Scrn (Ecstasy) Negative U Benzodiazepines Scrn Negative Urine Cocaine Screen Negative U Marijuana (THC) Screen Negative Ethyl Alcohol SARS-CoV-2 (PCR) Negative 08/13/20 08/13/20 08/13/20 05:23 05:23 05:23 WBC 4.9 RBC 4.06 L Hgb 12.5 L Hct 36.4 L MCV 89.8 MCH 30.8 MCHC 34.2 RDW 13.1 Plt Count 224 Neut % (Auto) 68.2 Lymph % (Auto) 19.5 L [place] % (Auto) 8.8 Eos % (Auto) 3.0 Baso % (Auto) 0.5 Neut # (Auto) 3300 Lymph # (Auto) 1000 L [place] # (Auto) 400 Eos # (Auto) 100 Baso # (Auto) 0 PT 12.5 INR 1.1 APTT Sodium 137 Potassium 3.9 Chloride 102 Carbon Dioxide 27 BUN 23 H Creatinine 1.10 Estimated GFR > 60.0 BUN/Creatinine Ratio 20.9 Glucose 128 H Hemoglobin A1c Calcium 9.2 Phosphorus 4.1 H Magnesium Total Bilirubin AST ALT Alkaline Phosphatase Troponin I NT-Pro-B Natriuret Pep 292 H Total Protein Albumin Globulin Albumin/Globulin Ratio Triglycerides 153 H Cholesterol 113 L LDL Cholesterol, Calc 56 HDL Cholesterol 26 L Lipase TSH U Opiates 300ng/mL cut Ur Oxycodone Screen Urine Methadone Screen Ur Barbiturates Screen U Tricyclic Antidepress Ur Phencyclidine Scrn Ur Amphetamines Screen U Methamphetamines Scrn Ur MDMA Scrn (Ecstasy) U Benzodiazepines Scrn Urine Cocaine Screen U Marijuana (THC) Screen Ethyl Alcohol SARS-CoV-2 (PCR) [facility] Medical History (Updated 08/12/20 @ 23:55 by CRUZITO Null-) BPH (benign prostatic hyperplasia) Diabetes History of agent [place] exposure History of gastrointestinal ulcer Hypertension Lung cancer, lower lobe Surgical History (Updated 08/12/20 @ 23:55 by CRUZITO Null-) History of lobectomy of lung Family History Father Stroke Daughter Spina bifida Sister Dementia Social History household members: spouse Smoking Status: Former smoker alcohol intake: former Discharge Plan Discharge Plan Patient Disposition: Home Provider Discharge Comment: Follow up with JUVENTINO Marin at the [facility] in a week Discharge orders & Medications Prescriptions: New losartan 50 mg Tablet 50 mg PO DAILY Qty: 30 RF: 0 Continued tamsulosin 0.4 mg capsule 0.4 mg PO DAILY RF: 0 atorvastatin 10 mg Tablet 10 mg PO BEDTIME RF: 0 glipizide 10 mg Tablet 10 mg PO BID RF: 0 ferrous sulfate 325 mg (65 mg iron) Tablet 325 mg PO DAILY RF: 0 metformin 1,000 mg Tablet 1,000 mg PO BID RF: 0 omeprazole 20 mg Capsule,Delayed Release(Dr/Ec) 20 mg PO DAILY RF: 0 aspirin 81 mg Tablet 81 mg PO DAILY RF: 0 Diet/Activity/Treatments Diet: Low-fat and Low-sodium Visit Report/Discharge Packet Instructions: Cardiomyopathy, DI for Cardiomyopathy, Losartan Discharge Data Attending Provider: Jared Kilgore Stroke Contraindication Not Initiating IV-Tpa: Not indicated VTE Deep Vein Thrombosis/Pulmonary Embolism Present on Admission: No
== END 2020-08-14 11:40 | disposition home or self-care (01) ==
LOC: ED 18:18 → AC 19:49
PROVIDERS: Nurse Practitioner Family; Admitting Provider Internal Medicine; Emergency Provider Emergency Medicine; Referring Provider Emergency Medicine; Visit Provider Internal Medicine
DX: R41.0 Disorientation, unspecified (principal); E83.42 Hypomagnesemia; I42.8 Other cardiomyopathies; E11.9 Type 2 diabetes mellitus without complications; E78.5 Hyperlipidemia, unspecified; N40.0 Benign prostatic hyperplasia without lower urinary tract symptoms; Z57.5 Occupational exposure to toxic agents in other industries; Z79.84 Long term (current) use of oral hypoglycemic drugs; Z90.2 Acquired absence of lung [part of]; Z85.118 Personal history of other malignant neoplasm of bronchus and lung; Z20.822 Contact with and (suspected) exposure to COVID-19
CPT/HCPCS: 36415; 70450; 70548; 70553; 71045; 80048; 80053; 80061; 80305; 80320; 81003; 82962; 83036; 83690; 83735; 83880; 84100; 84443; 84484; 85025; 85610; 85730; 87635; 92522; 93005; 93010; 96365; 96366; 96372; 97161; 97165; 99285; C9803; G0378; C8929; J1815; J3475; Q9957